=== PATIENT | female | born 1995 | race American Indian/Alaskan Native ===

== ENCOUNTER 2018-03-07 12:40 | Outpatient (CLI) | payer OTHER, BC, MEDICAID ==
[2018-03-07] MEDS ORDERED: LACTATED RINGERS 500 ML IV ONE (13:53)
== END 2018-03-07 14:29 | disposition home or self-care (01) ==
LOC: TRG 12:40
PROVIDERS: ATTEND Obstetrics & Gynecology
DX: O71.89 Other specified obstetric trauma (principal); Z3A.31 31 weeks gestation of pregnancy
CPT/HCPCS: 59025

== ENCOUNTER 2020-05-16 15:18 | Inpatient (IN) | payer BC, OTHER ==
[2020-05-16] MEDS ORDERED: TERBUTALINE 1 MG/1 ML INJ SUB-Q PRN (16:43)
[2020-05-16] MEDS ORDERED: PROMETHAZINE 25 MG TAB PO PRN (16:43)
[2020-05-16] MEDS ORDERED: LOPERAMIDE 2 MG CAP PO PRN (16:43)
[2020-05-16] MEDS ORDERED: METHYLERGONOVINE MALEATE 0.2 MG/ML VIAL IM PRN (16:43)
[2020-05-16] MEDS ORDERED: OXYTOCIN 10 UNIT/1 ML INJ IM PRN (16:43)
[2020-05-16] MEDS ORDERED: ONDANSETRON 4 MG/2 ML INJ IV PRN (16:43)
[2020-05-16] MEDS ORDERED: ePHEDrine SULFATE 50 MG/1 ML INJ IV PRN ×2 (16:43→19:38)
[2020-05-16] MEDS ORDERED: MINERAL OIL 30 ML ORAL LIQD PO PRN (16:43)
[2020-05-16] MEDS ORDERED: fentaNYL 100 MCG/2 ML INJ IV PRN (16:43)
[2020-05-16] MEDS ORDERED: CARBOPROST TROMETHAMINE 250 MCG/1 ML INJ IM PRN (16:43)
[2020-05-16] MEDS ORDERED: NALOXONE 0.4 MG/1 ML INJ IV PRN (16:43)
[2020-05-16] MEDS ORDERED: ACETAMINOPHEN 325 MG TAB PO PRN (16:43)
[2020-05-16] MEDS ORDERED: OXYTOCIN DRIP 30 UNITS/500 ML BAG IV SCH ×2 (16:49→16:50)
[2020-05-16] MEDS ORDERED: LIDOCAINE (2%) 20 MG/1 ML VIAL 20 ML MDV INFILTRATI ONE (16:49)
--- NOTE | 2020-05-16 17:45 | History and Physical Report ---
History of Present Illness Date of examination: 05/16/20 (Ctxs and SROM for thick mec in triage) Date of admission: 05/16/20 16:43 Chief complaint: I'm having ctxs. SROM for thick mec in triage. History of present illness: Pt presented to triage d/t ctxs and SROM for thick mec while during triage evaluation. 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 % Sun Exposure: rarely Dietary Counseling: pn yes Past Medical History: Reviewed history from 12/01/2017 and no changes required: Negative Past Medical History Past Surgical History: Reviewed history from 06/14/2019 and no changes required: negative Past Medical History Anesthesia Complications: negative Anemia: negative Autoimmune Disorder: negative Bleeding Disorder: negative Blood Transfusions: negative Breast Disease: negative Diabetes: negative Heart Disease: negative Hypertension: negative Hepatitis/Liver Disease: negative Kidney Disease/UTI: negative Neurologic/Epilepsy/Migraines: negative Phlebitis/Varicosities: negative Psychiatric: positive, depression Pulmonary Disease/Asthma: negative Thyroid Disease: negative Hospitalizations: negative Surgery (Non-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 Infection History Hx of STD: Tric HIV Risk Eval: no Hepatitis B Risk Eval: low risk Personal hx. of genital herpes: no Partner hx. of genital herpes: no Rash, Viral, or Febrile illness since last LMP? no Varicella/Chicken Pox Status: Unknown TB Risk: no Infection History Comments: Has never had chickenpox Genetic History Congenital Heart Defect: Mom: yes Dad: no Comments: Per pt, last baby had heart defect that needed to be repaired at 2 months of age Olya Disease: Mom: no Dad: no Thalassemia Mom: no Dad: no Neural Tube Defect Mom: no Dad: no Down's Syndrome Mom: no Dad: no Sabas-Sachs Mom: no Dad: no Sickle Cell Disease/Trait Dad: yes Hemophilia Mom: no Dad: no Muscular Dystrophy Mom: no Dad: no Cystic Fibrosis Mom: no Dad: no [place] Chorea Mom: no Dad: no Mental Retardation Mom: no Dad: no Fragile X Mom: no Dad: no Other Genetic/Chromosomal Disorder Mom: no Dad: no Child w/other defect Mom: no Dad: no Enviromental Exposures Xray Exposure: no Medication, drug, or alcohol use since LMP: no Chemical/Other Exposure: no Exposure to Cat Liter: no Hx of Parvovirus (Fifth Disease): no Occupational Exposure to Children: none Current Allergies (reviewed today): PENICILLIN G POT IN DEXTROSE (PENICILLIN G POTASSIUM IN D5W SOLN) (Critical) Laboratory Results Past History Past Medical History: no pertinent history Past Surgical History: no surgical history Family/Genetic History: none Social history: no significant social history - Obstetrical History Expected Date of Delivery: 05/18/20 Actual Gestation: 39 Week(s) 5 Day(s) : 3 Para: 1 Hx # Term Pregnancies: 1 Number of Pregnancies: 0 Spontaneous Abortions: 1 Induced : 0 Number of Living Children: 1 Medications and Allergies Allergies Allergy/AdvReac Type Severity Reaction Status Date / Time Penicillins Allergy Unknown Verified 05/11/18 19:40 Home Medications Medication Instructions Recorded Confirmed Last Taken Type Ondansetron [Zofran ODT TAB] 8 mg PO DAILY 05/16/20 05/16/20 05/15/20 20:00 History Active Meds: Active Medications Acetaminophen (Tylenol) 650 mg PO Q4H PRN PRN Reason: Pain, Mild (1-3) Carboprost Tromethamine (Hemabate) 250 mcg IM ONCE PRN PRN Reason: Uterine Bleeding Ephedrine Sulfate (Ephedrine Sulfate) 10 mg IV Q2M PRN PRN Reason: Hypotension Fentanyl (Sublimaze) 100 mcg IV Q2H PRN PRN Reason: Pain,Severe (7-10) LABOR PAIN Oxytocin/Sodium Chloride (Pitocin/Ns 30 Unit/500ml) 30 units in 500 mls @ 4 mls/hr IV TITR JENNIFER; Protocol Lactated Ringer's (Lactated Ringers) 1,000 mls @ 125 mls/hr IV DIRECT JENNIFER Oxytocin/Sodium Chloride (Pitocin/Ns 30 Unit/500ml) 30 units in 500 mls @ 40 mls/hr IV TITR JENNIFER; Protocol Loperamide HCl (Imodium) 2 mg PO ONCE PRN PRN Reason: give with Hemabate Methylergonovine Maleate (Methergine) 0.2 mg IM ONCE PRN PRN Reason: Uterine Bleeding Mineral Oil (Mineral Oil) 30 ml PO QHS PRN PRN Reason: Constipation Naloxone HCl (Naloxone) 0.1 mg IV Q2MIN PRN PRN Reason: Res Rate </= 8 or 02 SAT < 92% Ondansetron HCl (Zofran) 4 mg IV Q8H PRN PRN Reason: Nausea And Vomiting Oxytocin (Pitocin) 10 unit IM ONCE PRN PRN Reason: Uterine Bleeding Promethazine HCl (Phenergan) 25 mg PO Q6H PRN PRN Reason: Nausea And Vomiting Terbutaline Sulfate (Brethine) 0.25 mg SUB-Q ONCE PRN PRN Reason: Hyperstimulation/Hypertonicity Review of Systems All systems: negative - Vital Signs Vital signs: Vital Signs Temp Resp 98.8 F 20 05/16/20 16:17 05/16/20 16:17 Temp Pulse Resp BP Pulse Ox 98.2 F 104 H 17 116/74 99 05/16/20 16:55 05/16/20 17:36 05/16/20 16:55 05/16/20 16:55 05/16/20 17:36 - Physical Exam Breasts: Positive: deferred Cardiovascular: Regular rate Lungs: Positive: Normal air movement Abdomen: Positive: normal appearance, soft, normal bowel sounds. Negative: distention, tenderness Genitourinary (Female): Positive: normal external genitalia, normal perenium Vulva: both: normal Vagina: Positive: normal moisture. Negative: discharge Cervix: Negative: lesion, discharge Uterus: Positive: normal size, normal contour Adnexa: both: normal Anus/Rectum: Positive: normal perianal skin, heme negative. Negative: rectal mass, hemorrhoids Extremities: Positive: normal Deep Tendon Reflex Grade: Normal +2 - Obstetrical FHR: auscultation normal, category 1 Uterine Contraction Monitor Mode: External Cervical Dilatation: 4 (Per adobe architect) Cervical Effacement Percentage: 60 station: -2 Uterine Contraction Pattern: Regular Uterine Tone Measurement Phase: Resting Uterine Contraction Intensity: Moderate Results Result Diagrams: 05/16/20 18:27 All other labs normal. GBS NEGATIVE HBsAg Screen Negative Negative *1 RPR Non Reactive Non Reactive *2 Rubella Antibodies, IgG [L] <0.90 index Immune >0.99 *3 Non-immune <0.90 Equivocal 0.90 - 0.99 Immune >0.99 ABO Grouping A *4 Rh Factor Positive *5 Tests: (3) HIV Ag/Ab with Reflex (889294) HIV Screen 4th Generation wRfx Non Reactive Non Reactive *55 Tests: (4) HCV Ab w/Rflx to Verification ([id number]) ! HCV Ab <0.1 s/co ratio 0.0-0.9 *56 Tests: (5) Comment: ([id number]) ! Comment: SPRCS *57 Non reactive HCV antibody screen is consistent with no HCV infection, unless recent infection is suspected or other evidence exists to indicate HCV infection. Assessment and Plan A: 24 y.o., @ 39.5 wks, ctxs, SROM for thick meconium. Cervical exam / 2. Pt has history of shoulder dystocia in the last . Consult with Dr. Perkins regarding route of delivery, will come and evaluate pt. Pt states that she wants a vaginal delivery and does not want a at this time. Will admit to labor and delivery, IV fluid bolus for epidural placement. Anticipate at this time. - Patient Problems (1) History of shoulder dystocia in prior Onset Date: ~2017 Current Visit: Yes Status: Acute Plan to address problem: Will closely observe progress of labor. Step stool in room for delivery. (2) with 39 completed weeks gestation Onset Date: ~05/11/20 Current Visit: Yes Status: Acute Plan to address problem: Continue to observe progression of labor and monitor status through EFM. (3) Rupture of membranes with meconium present Onset Date: ~05/16/20 Current Visit: Yes Status: Acute Plan to address problem: [facility] team to be @ delivery for assessment of baby.
[2020-05-16] MEDS: LACTATED RINGERS 1,000 ML IV SCH ×2 (18:09→19:01)
[2020-05-16 18:49] LABS: Hemoglobin 8.4 gm/dl (10.1-14.3); Mean Corpuscular HGB Conc 31 % (30-34); Platelet Count 213 K/mm3 (140-440); Red Blood Count 3.88 M/mm3 (3.65-5.03); Red Cell Distribution Width 18.9 % (13.2-15.2)
[2020-05-16 18:53] LABS: Mean Corpuscular Volume 70 fl (79-97)
--- NOTE | 2020-05-16 19:06 | Event Note ---
Date: 05/16/20 Limitations of determining adequateness of the pelvis at this EGA discussed. Discussed possible 0.5lb-1lb weight gain per week. She was informed there may be a 1-2# weight discrepancy by US in the 3rd trimester. Risks with RELL discussed, including but not limited to, shoulder dystocia in which the may have transient or permanent paralysis of the the extremities, brain damage or as well as infection. Also discussed possible injury to the rectum or perineum that may require multiple surgeries and result in permanent diffic ulties with bowel movements and pain. Risks associated with delivery explained, including but not limited to, bleeding that may require a blood transfusion, infection, injury to her bowel and/or bladder or ureters that may be life threatening or fatal. Questions were encouraged and answered. She states this baby feels smaller than her first baby. She voiced understanding and desires to proceed with RELL.
[2020-05-16] MEDS ORDERED: NALOXONE 2 MG/2 ML INJ IV PRN (19:38)
--- NOTE | 2020-05-16 19:39 | Anesthesia Consultation ---
Anesthesia Consult and Med Hx Date of service: 05/16/20 - Airway Anesthetic Teeth Evaluation: Good ROM Head & Neck: Adequate Mental/Hyoid Distance: Adequate Mallampati Class: Class II Intubation Access Assessment: Probably Good - Pulmonary Exam CTA: Yes - Cardiac Exam Cardiac Exam: RRR - Pre-Operative Health Status ASA Pre-Surgery Classification: ASA2 Proposed Anesthetic Plan: Epidural - Pulmonary Hx Smoking: No Hx Asthma: No Hx Respiratory Symptoms: No COPD: No Hx Pneumonia: No - Cardiovascular System Hx Hypertension: No Hx Heart Attack/AMI: No - Central Nervous System Hx Neuromuscular Disorder: No Hx Seizures: No CVA: No Hx Back Pain: No Hx Psychiatric Problems: No - Endocrine Hx Renal Disease: No Hx End Stage Renal Disease: No Hx Liver Disease: No Hx Insulin Dependent Diabetes: No Hx Thyroid Disease: No Hx Hypothyroidism: No Hx Hyperthyroidism: No - Hematic Hx Anemia: Yes Hx Sickle Cell Disease: No - Other Systems Hx Alcohol Use: No Hx Obesity: Yes
--- NOTE | 2020-05-16 19:40 | Progress Note ---
Labor Epidural - Labor Epidural Start Time: 19:30 Stop Time: 19:35 Performed by:: DAMION LACY Procedure: Patient is requesting epidural for labor pain. H&P, and labs reviewed. Procedure explained, questions answered, consent obtained. Patient in sitting position with blood pressure cuff and pulse ox on and working. Timeout performed immediately before start of procedure. Sterile betadine prep/drape. 3 mL 1% lidocaine skin wheal at L[3]-L[4]. 18-gauge [employer] epidural needle advanced to [id number] with saline at [7] cm. Epidural dexmedetomidine [30] mcg administered. Epidural catheter advanced to [12] cm, negative aspiration for blood and csf, negative test dose 3 ml 1.5% lidocaine with epinephrine. Sterile steri-strips and tegaderm applied, followed by tape reinforcement. Patient tolerated procedure well.
[2020-05-16] MEDS ORDERED: fentaNYL-BUPIV 2 MCG/ML-0.125% 200 MCG/100 ML BAG EPIDURAL SCH (20:00)
--- NOTE | 2020-05-16 23:41 | Progress Note ---
Assessment and Plan A: 24 y.o. @ 39.5 wks, SROM mec stained fluid. Active labor. Cervical exam 9.5/100/0. P: Continue with expectant management. Anticipate . - Patient Problems (1) History of shoulder dystocia in prior Onset Date: ~2017 Current Visit: Yes Status: Acute (2) with 39 completed weeks gestation Onset Date: ~05/11/20 Current Visit: Yes Status: Acute (3) Rupture of membranes with meconium present Onset Date: ~05/16/20 Current Visit: Yes Status: Acute Subjective - Subjective Date of service: 05/16/20 (Pt comfortable with epidural. ) Principal diagnosis: IUP@ 39.5 wks, SROM mec stained. Active labor. Interval history: Pt presented to triage d/t ctxs and SROM for thick mec while during triage evaluation. 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 % Sun Exposure: rarely Dietary Counseling: pn yes Past Medical History: Reviewed history from 12/01/2017 and no changes required: Negative Past Medical History Past Surgical History: Reviewed history from 06/14/2019 and no changes required: negative Past Medical History Anesthesia Complications: negative Anemia: negative Autoimmune Disorder: negative Bleeding Disorder: negative Blood Transfusions: negative Breast Disease: negative Diabetes: negative Heart Disease: negative Hypertension: negative Hepatitis/Liver Disease: negative Kidney Disease/UTI: negative Neurologic/Epilepsy/Migraines: negative Phlebitis/Varicosities: negative Psychiatric: positive, depression Pulmonary Disease/Asthma: negative Thyroid Disease: negative Hospitalizations: negative 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 Infection History Hx of STD: Tric HIV Risk Eval: no Hepatitis B Risk Eval: low risk Personal hx. of genital herpes: no Partner hx. of genital herpes: no Rash, Viral, or Febrile illness since last LMP? no Varicella/Chicken Pox Status: Unknown TB Risk: no Infection History Comments: Has never had chickenpox Genetic History Congenital Heart Defect: Mom: yes Dad: no Comments: Per pt, last baby had heart defect that needed to be repaired at 2 months of age Olya Disease: Mom: no Dad: no Thalassemia Mom: no Dad: no Neural Tube Defect Mom: no Dad: no Down's Syndrome Mom: no Dad: no Sabas-Sachs Mom: no Dad: no Sickle Cell Disease/Trait Dad: yes Hemophilia Mom: no Dad: no Muscular Dystrophy Mom: no Dad: no Cystic Fibrosis Mom: no Dad: no [place] Chorea Mom: no Dad: no Mental Retardation Mom: no Dad: no Fragile X Mom: no Dad: no Other Genetic/Chromosomal Disorder Mom: no Dad: no Child w/other defect Mom: no Dad: no Enviromental Exposures Xray Exposure: no Medication, drug, or alcohol use since LMP: no Chemical/Other Exposure: no Exposure to Cat Liter: no Hx of Parvovirus (Fifth Disease): no Occupational Exposure to Children: none Current Allergies (reviewed today): PENICILLIN G POT IN DEXTROSE (PENICILLIN G POTASSIUM IN D5W SOLN) (Critical) Laboratory Results Objective - Vital Signs Vital Signs: Vital Signs - 12hr 05/16/20 05/16/20 05/16/20 16:17 16:51 16:55 Temperature 98.8 F 98.2 F Pulse Rate 93 H 92 H Respiratory 20 17 Rate Blood Pressure 116/74 Blood Pressure 116/74 [Right] O2 Sat by Pulse 98 97 Oximetry 05/16/20 05/16/20 05/16/20 16:56 17:01 17:06 Temperature Pulse Rate 98 H 93 H 96 H Respiratory Rate Blood Pressure Blood Pressure [Right] O2 Sat by Pulse 99 98 97 Oximetry 05/16/20 05/16/20 05/16/20 17:11 17:16 17:21 Temperature Pulse Rate 92 H 92 H 102 H Respiratory Rate Blood Pressure Blood Pressure [Right] O2 Sat by Pulse 98 98 99 Oximetry 05/16/20 05/16/20 05/16/20 17:26 17:31 17:36 Temperature Pulse Rate 98 H 93 H 104 H Respiratory Rate Blood Pressure Blood Pressure [Right] O2 Sat by Pulse 100 100 99 Oximetry 05/16/20 05/16/20 05/16/20 17:41 17:46 17:51 Temperature Pulse Rate 82 77 89 Respiratory Rate Blood Pressure Blood Pressure [Right] O2 Sat by Pulse 100 100 100 Oximetry 05/16/20 05/16/20 05/16/20 17:56 17:58 18:01 Temperature Pulse Rate 91 H 103 H 91 H Respiratory Rate Blood Pressure Blood Pressure [Right] O2 Sat by Pulse 100 91 100 Oximetry 05/16/20 05/16/20 05/16/20 18:06 18:11 18:16 Temperature Pulse Rate 101 H 85 82 Respiratory Rate Blood Pressure Blood Pressure [Right] O2 Sat by Pulse 100 100 100 Oximetry 05/16/20 05/16/20 05/16/20 18:21 18:26 18:29 Temperature Pulse Rate 84 81 96 H Respiratory Rate Blood Pressure Blood Pressure [Right] O2 Sat by Pulse 100 100 92 Oximetry 05/16/20 05/16/20 05/16/20 18:31 18:36 18:41 Temperature Pulse Rate 86 101 H 93 H Respiratory Rate Blood Pressure Blood Pressure [Right] O2 Sat by Pulse 100 100 100 Oximetry 05/16/20 05/16/20 05/16/20 18:46 18:51 18:56 Temperature Pulse Rate 93 H 106 H 106 H Respiratory Rate Blood Pressure Blood Pressure [Right] O2 Sat by Pulse 100 100 100 Oximetry 05/16/20 05/16/20 05/16/20 19:01 19:06 19:07 Temperature Pulse Rate 99 H 99 H 111 H Respiratory Rate Blood Pressure 109/69 Blood Pressure [Right] O2 Sat by Pulse 100 100 Oximetry 05/16/20 05/16/20 05/16/20 19:11 19:16 19:21 Temperature Pulse Rate 95 H 85 101 H Respiratory Rate Blood Pressure Blood Pressure [Right] O2 Sat by Pulse 100 100 100 Oximetry 05/16/20 05/16/20 05/16/20 19:26 19:30 19:31 Temperature Pulse Rate 109 H 117 H 112 H Respiratory Rate Blood Pressure 103/61 122/76 Blood Pressure [Right] O2 Sat by Pulse 94 100 Oximetry 05/16/20 05/16/20 05/16/20 19:32 19:34 19:36 Temperature Pulse Rate 117 H 104 H 106 H Respiratory Rate Blood Pressure 127/75 125/62 134/77 Blood Pressure [Right] O2 Sat by Pulse 99 Oximetry 05/16/20 05/16/20 05/16/20 19:38 19:40 19:41 Temperature Pulse Rate 97 H 101 H 101 H Respiratory Rate Blood Pressure 112/51 108/59 Blood Pressure [Right] O2 Sat by Pulse 85 100 Oximetry 05/16/20 05/16/20 05/16/20 19:42 19:43 19:46 Temperature Pulse Rate 100 H 96 H 93 H Respiratory Rate Blood Pressure 103/59 98/54 113/68 Blood Pressure [Right] O2 Sat by Pulse 100 Oximetry 05/16/20 05/16/20 05/16/20 19:48 19:49 19:51 Temperature Pulse Rate 93 H 91 H 91 H Respiratory Rate Blood Pressure 109/53 111/58 Blood Pressure [Right] O2 Sat by Pulse 100 Oximetry 05/16/20 05/16/20 05/16/20 19:52 19:53 19:56 Temperature Pulse Rate 90 90 93 H Respiratory Rate Blood Pressure 124/62 Blood Pressure [Right] O2 Sat by Pulse 88 100 Oximetry 05/16/20 05/16/20 05/16/20 20:01 20:06 20:07 Temperature Pulse Rate 90 87 92 H Respiratory Rate Blood Pressure 103/57 94/51 Blood Pressure [Right] O2 Sat by Pulse 100 100 Oximetry 05/16/20 05/16/20 05/16/20 20:10 20:11 20:15 Temperature Pulse Rate 90 97 H 72 Respiratory Rate Blood Pressure 93/55 Blood Pressure [Right] O2 Sat by Pulse 100 93 Oximetry 05/16/20 05/16/20 05/16/20 20:16 20:20 20:21 Temperature Pulse Rate 93 H 71 78 Respiratory Rate Blood Pressure 89/54 128/64 Blood Pressure [Right] O2 Sat by Pulse 100 100 Oximetry 05/16/20 05/16/20 05/16/20 20:25 20:26 20:31 Temperature Pulse Rate 81 79 88 Respiratory Rate Blood Pressure 116/56 108/66 Blood Pressure [Right] O2 Sat by Pulse 100 100 Oximetry 05/16/20 05/16/20 05/16/20 20:36 20:41 20:46 Temperature Pulse Rate 93 H 90 91 H Respiratory Rate Blood Pressure Blood Pressure [Right] O2 Sat by Pulse 100 100 100 Oximetry 05/16/20 05/16/20 05/16/20 20:49 20:51 20:56 Temperature Pulse Rate 96 H 101 H 97 H Respiratory Rate Blood Pressure 106/56 Blood Pressure [Right] O2 Sat by Pulse 100 100 Oximetry 05/16/20 05/16/20 05/16/20 21:01 21:04 21:06 Temperature Pulse Rate 87 95 H 92 H Respiratory Rate Blood Pressure 103/54 Blood Pressure [Right] O2 Sat by Pulse 100 100 Oximetry 05/16/20 05/16/20 05/16/20 21:11 21:16 21:19 Temperature Pulse Rate 109 H 98 H 96 H Respiratory Rate Blood Pressure 107/55 Blood Pressure [Right] O2 Sat by Pulse 100 100 Oximetry 05/16/20 05/16/20 05/16/20 21:21 21:26 21:31 Temperature Pulse Rate 91 H 102 H 90 Respiratory Rate Blood Pressure Blood Pressure [Right] O2 Sat by Pulse 100 100 99 Oximetry 05/16/20 05/16/20 05/16/20 21:34 21:36 21:41 Temperature Pulse Rate 133 H 88 95 H Respiratory Rate Blood Pressure 147/116 Blood Pressure [Right] O2 Sat by Pulse 94 96 99 Oximetry 05/16/20 05/16/20 05/16/20 21:46 21:50 21:51 Temperature Pulse Rate 103 H 100 H 103 H Respiratory Rate Blood Pressure 96/55 Blood Pressure [Right] O2 Sat by Pulse 97 97 Oximetry 05/16/20 05/16/20 05/16/20 21:56 22:01 22:04 Temperature Pulse Rate 86 104 H 102 H Respiratory Rate Blood Pressure 109/67 Blood Pressure [Right] O2 Sat by Pulse 98 100 0 L Oximetry 05/16/20 05/16/20 05/16/20 22:06 22:11 22:16 Temperature Pulse Rate 91 H 92 H 81 Respiratory Rate Blood Pressure Blood Pressure [Right] O2 Sat by Pulse 97 96 98 Oximetry 05/16/20 05/16/20 05/16/20 22:19 22:21 22:26 Temperature Pulse Rate 85 82 80 Respiratory Rate Blood Pressure 111/58 Blood Pressure [Right] O2 Sat by Pulse 97 98 Oximetry 05/16/20 05/16/20 05/16/20 22:31 22:34 22:36 Temperature Pulse Rate 87 93 H 92 H Respiratory Rate Blood Pressure 117/64 Blood Pressure [Right] O2 Sat by Pulse 100 99 Oximetry 05/16/20 05/16/20 05/16/20 22:41 22:46 22:50 Temperature Pulse Rate 77 78 78 Respiratory Rate Blood Pressure 114/56 Blood Pressure [Right] O2 Sat by Pulse 100 98 Oximetry 05/16/20 05/16/20 05/16/20 22:51 22:56 23:01 Temperature Pulse Rate 82 89 82 Respiratory Rate Blood Pressure Blood Pressure [Right] O2 Sat by Pulse 99 100 99 Oximetry 05/16/20 05/16/20 05/16/20 23:04 23:06 23:11 Temperature Pulse Rate 88 95 H 86 Respiratory Rate Blood Pressure 92/53 Blood Pressure [Right] O2 Sat by Pulse 100 99 Oximetry 05/16/20 05/16/20 05/16/20 23:16 23:19 23:21 Temperature Pulse Rate 88 94 H 86 Respiratory Rate Blood Pressure 91/50 Blood Pressure [Right] O2 Sat by Pulse 98 98 Oximetry 05/16/20 05/16/20 05/16/20 23:26 23:28 23:31 Temperature Pulse Rate 97 H 88 109 H Respiratory Rate Blood Pressure Blood Pressure [Right] O2 Sat by Pulse 100 94 99 Oximetry - Exam Breasts: deferred Cardiovascular: Regular rate Lungs: Normal air movement Abdomen: Present: normal appearance Vulva: both: normal Uterus: Present: normal FHR: category 1 Uterine Contraction Monitor Mode: External Cervical Dilatation: 9.5 Cervical Effacement Percentage: 100 station: 0 Uterine Contraction Frequency (min): 1-2 minutes Uterine Contraction Duration: 90secs Uterine Contraction Pattern: Regular Uterine Tone Measurement Phase: Resting Uterine Contraction Intensity: Moderate Extremities: normal Deep Tendon Reflex Grade: Normal +2 - Labs Labs: Abnormal Labs 05/16/20 18:27 Hgb 8.4 L Hct 27.0 L MCV 70 L MCH 22 L RDW 18.9 H Laboratory Results - last 24 hr 05/16/20 05/16/20 05/16/20 18:27 18:27 18:30 WBC 8.7 RBC 3.88 Hgb 8.4 L Hct 27.0 L MCV 70 L MCH 22 L MCHC 31 RDW 18.9 H Plt Count 213 Syphilis IgG Antibody Nonreactive Blood Type A POSITIVE Antibody Screen Negative
[2020-05-17] MEDS ORDERED: LIDOCAINE (2%) 20 MG/1 ML VIAL 20 ML MDV INFILTRATI ONE (00:03)
--- NOTE | 2020-05-17 01:50 | Procedure Note ---
OB Delivery Note - Delivery Date of Delivery: 05/17/20 Translator And Interpreter: MANDY MENENDEZ Estimated blood loss: other (150 ml) - Vaginal Delivery presentation: vertex Delivery position: OA Intrapartum events: meconium, mult.variable deceleratio Delivery induction: none Delivery monitor: external FHT, external uterine Route of delivery: Delivery placenta: spontaneous Delivery cord: 3 umbilical vessels Episiotomy: none Delivery laceration: none Anesthesia: none Delivery comments: Viable male over intact perineum. to mothers abdomen for skin to skin. Cord cut and clamped by FOC after cessation of pulse. Infant handed to IS[facility]AS RN for evaluation d/t meconium stained fluid. Spontaneous delivery of placenta, intact, 3 vessels noted. Extra Ashwin's jelly noted. Fundus firm, minimal bleeding noted. Perineum inspected, no lacerations noted. Apgars 8,9. Infant weight 7-11. EBL 150ml. Sponge and instrument count correct X2. and marline r left in stable condition in care of RN. - Infant A at 1 minute: 8 at 5 minutes: 9 Infant Gender: Male
[2020-05-17] MEDS ORDERED: diphenhydrAMINE 25 MG CAP PO PRN (01:51)
[2020-05-17] MEDS ORDERED: BENZOCAINE/MENTHOL 20/0.5% TOP SPRAY 56 GM TP PRN (01:51)
[2020-05-17] MEDS ORDERED: WITCH HAZEL/ GLYCERIN PAD TP PRN (01:51)
[2020-05-17] MEDS ORDERED: ONDANSETRON 4 MG/2 ML INJ IV PRN (01:51)
[2020-05-17] MEDS ORDERED: PROMETHAZINE 25 MG RECT SUPP PR PRN (01:51)
[2020-05-17] MEDS ORDERED: MAGNESIUM HYDROXIDE (MOM) ORAL LIQD UDC PO PRN (01:51)
[2020-05-17] MEDS ORDERED: PROMETHAZINE 25 MG TAB PO PRN (01:51)
[2020-05-17] MEDS ORDERED: LANOLIN/ZINC/DIMETHICONE (LANSINOH) 7 GM TP PRN (01:51)
[2020-05-17] MEDS ORDERED: ACETAMINOPHEN 500 MG TAB PO PRN (01:51)
[2020-05-17] MEDS ORDERED: OXYTOCIN DRIP 30 UNITS/500 ML BAG IV SCH (02:00)
[2020-05-17] MEDS: IBUPROFEN 800 MG TAB PO SCH ×4 (02:29→23:30)
--- NOTE | 2020-05-17 11:03 | Progress Note ---
Assessment and Plan A: 24 y.o. s/p . Doing well . H/H 8.4/27. Anemia before delivery. P: Continue care. Iron supplementation ordered, Rx on chart for when discharged home. Anticipate discharge home on 05/18/2020. - Patient Problems (1) History of shoulder dystocia in prior Onset Date: ~2017 Current Visit: Yes Status: Resolved (2) with 39 completed weeks gestation Onset Date: ~05/11/20 Current Visit: Yes Status: Resolved (3) Rupture of membranes with meconium present Onset Date: ~05/16/20 Current Visit: Yes Status: Resolved Subjective - Subjective Date of service: 05/17/20 (Pt doing well. Declines circumcision.) Principal diagnosis: s/p approximately 10 hours Interval history: Pt presented to triage d/t ctxs and SROM for thick mec while during triage evaluation. 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 % Sun Exposure: rarely Dietary Counseling: pn yes Past Medical History: Reviewed history from 12/01/2017 and no changes required: Negative Past Medical History Past Surgical History: Reviewed history from 06/14/2019 and no changes required: negative Past Medical History Anesthesia Complications: negative Anemia: negative Autoimmune Disorder: negative Bleeding Disorder: negative Blood Transfusions: negative Breast Disease: negative Diabetes: negative Heart Disease: negative Hypertension: negative Hepatitis/Liver Disease: negative Kidney Disease/UTI: negative Neurologic/Epilepsy/Migraines: negative Phlebitis/Varicosities: negative Psychiatric: positive, depression Pulmonary Disease/Asthma: negative Thyroid Disease: negative Hospitalizations: negative Surgery (Non-financial services rep): 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 Infection History Hx of STD: Tric HIV Risk Eval: no Hepatitis B Risk Eval: low risk Personal hx. of genital herpes: no Partner hx. of genital herpes: no Rash, Viral, or Febrile illness since last LMP? no Varicella/Chicken Pox Status: Unknown TB Risk: no Infection History Comments: Has never had chickenpox Genetic History Congenital Heart Defect: Mom: yes Dad: no Comments: Per pt, last baby had heart defect that needed to be repaired at 2 months of age Olya Disease: Mom: no Dad: no Thalassemia Mom: no Dad: no Neural Tube Defect Mom: no Dad: no Down's Syndrome Mom: no Dad: no Sabas-Sachs Mom: no Dad: no Sickle Cell Disease/Trait Dad: yes Hemophilia Mom: no Dad: no Muscular Dystrophy Mom: no Dad: no Cystic Fibrosis Mom: no Dad: no Hobbs Chorea Mom: no Dad: no Mental Retardation Mom: no Dad: no Fragile X Mom: no Dad: no Other Genetic/Chromosomal Disorder Mom: no Dad: no Child w/other defect Mom: no Dad: no Enviromental Exposures Xray Exposure: no Medication, drug, or alcohol use since LMP: no Chemical/Other Exposure: no Exposure to Cat Liter: no Hx of Parvovirus (Fifth Disease): no Occupational Exposure to Children: none Current Allergies (reviewed today): PENICILLIN G POT IN DEXTROSE (PENICILLIN G POTASSIUM IN D5W SOLN) (Critical) Laboratory Results Patient reports: appetite normal, voiding normally, pain well controlled, flatus, ambulating normally : doing well Objective - Vital Signs Latest vital signs: Vital Signs Temp Pulse Resp BP BP BP Pulse Ox 05/17/20 08:34 98.3 F 76 18 92/54 97 05/17/20 04:50 99.2 F 88 18 95/56 97 05/17/20 04:18 114 H 94 05/17/20 04:16 107 H 92 05/17/20 04:11 101 H 95 05/17/20 04:10 99 H 101/56 91 05/17/20 04:06 99 H 96 05/17/20 04:01 100 H 96 05/17/20 03:56 100 H 95 05/17/20 03:55 94 H 85/48 94 05/17/20 03:51 102 H 95 05/17/20 03:46 99 H 95 05/17/20 03:41 103 H 97 05/17/20 03:40 104 H 100/56 05/17/20 03:36 101 H 96 05/17/20 03:31 101 H 97 05/17/20 03:26 105 H 96 05/17/20 03:25 98 H 102/56 05/17/20 03:21 105 H 97 05/17/20 03:16 108 H 96 05/17/20 03:11 101 H 97 05/17/20 03:10 95 H 109/56 05/17/20 03:06 94 H 96 05/17/20 03:01 101 H 97 05/17/20 02:56 99 H 96 05/17/20 02:55 93 H 112/59 05/17/20 02:51 104 H 97 05/17/20 02:46 97 H 99 05/17/20 02:41 99 H 97 05/17/20 02:40 100 H 114/59 05/17/20 02:36 102 H 98 05/17/20 02:31 116 H 98 05/17/20 02:26 102 H 99 05/17/20 02:25 98 H 109/56 05/17/20 02:21 99 H 99 05/17/20 02:16 108 H 99 05/17/20 02:11 104 H 105/55 99 05/17/20 02:06 101 H 99 05/17/20 02:01 102 H 99 05/17/20 01:56 112 H 99 05/17/20 01:51 108 H 100 05/17/20 01:46 108 H 100 05/17/20 01:41 109 H 125/72 100 05/17/20 01:36 113 H 100 05/17/20 01:31 119 H 100 05/17/20 01:28 110 H 139/66 05/17/20 01:26 108 H 100 05/17/20 01:21 107 H 100 05/17/20 01:16 104 H 100 05/17/20 01:11 97 H 100 05/17/20 01:06 114 H 100 05/17/20 01:01 100 H 100 05/17/20 00:56 112 H 98 05/17/20 00:55 103 H 83 L 05/17/20 00:51 97 H 99 05/17/20 00:49 86 112/58 05/17/20 00:46 99 H 98 05/17/20 00:41 102 H 100 05/17/20 00:36 97 H 100 05/17/20 00:34 96 H 116/57 05/17/20 00:31 93 H 100 05/17/20 00:26 96 H 100 05/17/20 00:21 94 H 100 05/17/20 00:19 212 H 73 L 05/17/20 00:16 103 H 100 05/17/20 00:11 106 H 100 05/17/20 00:06 101 H 100 05/17/20 00:04 105 H 93 05/17/20 00:01 99 H 100 05/16/20 23:56 109 H 100 05/16/20 23:51 115 H 100 05/16/20 23:49 110 H 68 L 05/16/20 23:46 109 H 96 05/16/20 23:43 111 H 93 05/16/20 23:41 103 H 100 05/16/20 23:36 116 H 84 05/16/20 23:31 109 H 99 05/16/20 23:28 88 94 05/16/20 23:26 97 H 100 05/16/20 23:21 86 98 05/16/20 23:19 94 H 91/50 05/16/20 23:16 88 98 05/16/20 23:11 86 99 05/16/20 23:06 95 H 100 05/16/20 23:04 88 92/53 05/16/20 23:01 82 99 05/16/20 22:56 89 100 05/16/20 22:51 82 99 05/16/20 22:50 78 114/56 05/16/20 22:46 78 98 05/16/20 22:41 77 100 05/16/20 22:36 92 H 99 05/16/20 22:34 93 H 117/64 05/16/20 22:31 87 100 05/16/20 22:26 80 98 05/16/20 22:21 82 97 05/16/20 22:19 85 111/58 05/16/20 22:16 81 98 05/16/20 22:11 92 H 96 05/16/20 22:06 91 H 97 05/16/20 22:04 102 H 109/67 0 L 05/16/20 22:01 104 H 100 05/16/20 21:56 86 98 05/16/20 21:51 103 H 97 05/16/20 21:50 100 H 96/55 05/16/20 21:46 103 H 97 05/16/20 21:41 95 H 99 11/14/20 21:36 88 96 20 21:34 133 H 147/116 94 20 21:31 90 99 20 21:26 102 H 100 20 21:21 91 H 100 20 21:19 96 H 107/55 20 21:16 98 H 100 20 21:11 109 H 100 20 21:06 92 H 100 20 21:04 95 H 103/54 20 21:01 87 100 20 20:56 97 H 100 20 20:51 101 H 100 20 20:49 96 H 106/56 20 20:46 91 H 100 20 20:41 90 100 20 20:36 93 H 100 20 20:31 88 108/66 100 20 20:26 79 100 20 20:25 81 116/56 20 20:21 78 100 20 20:20 71 128/64 20 20:16 93 H 89/54 100 20 20:15 98.6 F 72 93 20 20:11 97 H 100 20 20:10 90 93/55 20 20:07 92 H 94/51 20 20:06 87 100 20 20:01 90 103/57 100 20 19:56 93 H 100 20 19:53 90 124/62 20 19:52 90 88 20 19:51 91 H 100 20 19:49 91 H 111/58 20 19:48 93 H 109/53 20 19:46 93 H 113/68 100 20 19:43 96 H 98/54 20 19:42 100 H 103/59 20 19:41 101 H 100 20 19:40 101 H 108/59 20 19:38 97 H 112/51 85 20 19:36 106 H 134/77 99 20 19:34 104 H 125/62 20 19:32 117 H 127/75 20 19:31 112 H 100 1420 19:30 117 H 122/76 20 19:26 109 H 103/61 94 14/20 19:21 101 H 100 20 19:16 85 100 20 19:11 95 H 100 20 19:07 111 H 109/69 20 19:06 99 H 100 20 19:01 99 H 100 20 18:56 106 H 100 20 18:51 106 H 100 20 18:46 93 H 100 20 18:41 93 H 100 20 18:36 101 H 100 20 18:31 86 100 20 18:29 96 H 92 05/16/20 18:26 81 100 20 18:21 84 100 20 18:16 82 100 05/16/20 18:11 85 100 20 18:06 101 H 100 20 18:01 91 H 100 20 17:58 103 H 91 20 17:56 91 H 100 20 17:51 89 100 20 17:46 77 100 20 17:41 82 100 20 17:36 104 H 99 20 17:31 93 H 100 20 17:26 98 H 100 20 17:21 102 H 99 20 17:16 92 H 98 20 17:11 92 H 98 20 17:06 96 H 97 20 17:01 93 H 98 20 16:56 98 H 99 20 16:55 98.2 F 92 H 17 116/74 116/74 97 20 16:51 93 H 98 20 16:17 98.8 F 20 Intake and Output 20 20 05/17/20 22:59 06:59 14:59 Intake Total 108.333 240 Output Total 1000 600 Balance 108.333 -1000 -360 Intake: IV 108.333 Lactated Ringers 1,000 ml 108.333 @ 125 mls/hr IV DIRECT JENNIFER Rx#:[id number] Oral 240 Output: Urine 1000 600 Void 1000 600 Other: Total, Intake Amount 240 Total, Output Amount 300 600 # Voids Void 1 2 Weight 192 lb Estimated Blood Loss 150 - Exam Narrative Exam: H/H on admission 8.4/27.0. Likely anemia before delivery. Post delivery H/H to be drawn later on this afternoon. Pt currently denies being dizzy, lightheadedness, shortness of breath or chest pain. Iron supplementation ordered. Rx for iron supplementation on chart. Also of note, pt declines circumcision. Breasts: Present: deferred Cardiovascular: Present: Regular rate Lungs: Present: Normal air movement Abdomen: Present: normal appearance, soft Vulva: both: normal Uterus: Present: normal, firm (Minimal bleeding noted. ) Extremities: Present: normal Deep Tendon Reflex Grade: Normal +2 - Labs Labs: Abnormal lab results 05/16/20 Range/Units 18:27 Hgb 8.4 L (10.1-14.3) gm/dl Hct 27.0 L (30.3-42.9) % MCV 70 L (79-97) fl MCH 22 L (28-32) pg RDW 18.9 H (13.2-15.2) %
[2020-05-17] MEDS: PRENATAL VIT27-FE FUMARATE-FOLIC ACID VIT TAB PO SCH (12:03)
[2020-05-17] MEDS: FERROUS SULFATE 325 MG TAB PO SCH (12:03)
[2020-05-17] MEDS: DOCUSATE SODIUM 100 MG CAP PO SCH ×2 (12:03→23:30)
--- NOTE | 2020-05-17 12:58 | Post Anesthesia Evaluation ---
- Post Anesthesia Evaluation Patient Participated: Yes Airway Patent: Yes Stable Respiratory Function: Yes Nausea/Vomiting: No Temp > 96.8F: Yes Pain Manageable: Yes Adequeate Hydration: Yes Anesthesia Complications: No Block Receding Appropriately: Yes
[2020-05-17 14:18] LABS: Hematocrit 24.5 % (30.3-42.9); Hemoglobin 7.5 gm/dl (10.1-14.3)
[2020-05-18] MEDS ORDERED: DIPHtheria,PERTUSSIS(ACELL),TETANUS VACCINE/PF 0.5 ML VIAL IM ONE (06:00)
[2020-05-18] MEDS: IBUPROFEN 800 MG TAB PO SCH ×2 (06:04→17:32)
--- NOTE | 2020-05-18 06:57 | Discharge Summary ---
Providers - Providers Date of Admission: 05/16/20 16:43 Date of discharge: 05/18/20 (pt agrees with d/c) Attending physician: GAYLE THOMPSON Primary care physician: GAYLE THOMPSON Hospitalization Reason for admission: active labor Delivery: Episiotomy: none Laceration: none Incision: normal Other procedures: none complications: none Discharge diagnosis: IUP at term delivered baby: male Hospital course: Uncomplicated vaginal delivery Pt resting in bed Caring for NB. VSS FF below umb Lochia small Perineum intact. H&H 01/23 No s/sx of anemia Drop r/t blood loss from delivery. RX po iron Doing well s/p vag delivery P: d.c today with instructions RTO 4 weeks PP care Condition at discharge: Good Disposition: DC-01 TO HOME OR SELFCARE - Discharge Diagnoses (1) (normal spontaneous vaginal delivery) Status: Acute Comment: RTO 4 weeks PP care Plan - Discharge Medications Prescriptions: Docusate Sodium [Colace] 100 mg PO BID PRN #60 capsule PRN Reason: Constipation Ferrous Sulfate [Iron 325 MG] 325 mg PO DAILY #30 tablet - Provider Discharge Summary Activity: routine, no sex for 6 weeks, no heavy lifting 4 weeks, no strenuous exercise Diet: routine Instructions: routine Additional instructions: [] Smoking cessation referral if applicable(refer to patient education folder for contact #) [] Refer to [facility] Booklet Call your doctor immediately for: * Fever > 100.5 * Heavy vaginal bleeding ( >1 pad per hour) * Severe persistent headache * Shortness of breath * Reddened, hot, painful area to leg or breast * Drainage or odor from incision. * Keep incision clean and dry at all times and follow doctor's instructions regarding bathing/showering - Follow up plan Follow up: GAYLE THOMPSON MD [Primary Care Provider] - 06/16/20 (Congratulations! Please call [phone] to schedule your visit in 4 weeks. Take medications as prescribed. Motrin/ibuprofen for pain/cramping. Call with any concerns.)
[2020-05-18] MEDS: FERROUS SULFATE 325 MG TAB PO SCH (09:41)
[2020-05-18] MEDS: DOCUSATE SODIUM 100 MG CAP PO SCH (09:42)
[2020-05-18] MEDS: PRENATAL VIT27-FE FUMARATE-FOLIC ACID VIT TAB PO SCH (09:43)
[2020-05-18 14:07] VITALS: BP 125/77
== END 2020-05-18 14:15 | disposition home or self-care (01) | DRG 807 ==
LOC: TRG 15:18 → APU 15:19 → TRG 16:43 → LD 16:43 → OB 05-17 04:53
PROVIDERS: ADMIT Obstetrics & Gynecology; ATTEND Obstetrics & Gynecology
PROC: 10E0XZZ Delivery of Products of Conception, External Approach (ICD-10-PCS; principal; 2020-05-17)
PROC: 3E0234Z Introduction of Serum, Toxoid and Vaccine into Muscle, Percutaneous Approach (ICD-10-PCS; 2020-05-18)
DX: O77.0 Labor and delivery complicated by meconium in amniotic fluid (principal); Z37.0 Single live birth; Z3A.39 39 weeks gestation of pregnancy; Z88.0 Allergy status to penicillin; Z20.828 Contact with and (suspected) exposure to other viral communicable diseases; O90.81 Anemia of the puerperium; O76 Abnormality in fetal heart rate and rhythm complicating labor and delivery; Z23 Encounter for immunization; D64.9 Anemia, unspecified
CPT/HCPCS: 36415; 85014; 85018; 85027; 86592; 86850; 86900; 86901; G0378; J2590; J3010; J7120; U0003

== ENCOUNTER 2020-05-24 18:36 | Observation (INO) | payer BC, OTHER ==
--- NOTE | 2020-05-24 18:52 | Event Note ---
ED Screening Note ED Screening Note: vaginal delivery on 05/17/2020 on 05/19/2020 began having CP and SOB states CP feels like tightness no pleuritic CP states she feels SOB when she lays flat and with exertion states she has to sleep with 3 pillows behind her no cough no fever no n/v/d no vaginal bleeding no COLIN currently no vision changes no leg swelling PMHx none no complications during allergy: pencillin no hx of HTN /P:2/A:1 BP: 166/95 This initial assessment/diagnostic orders/clinical plan/treatment(s) is/are subject to change based on patients health status, clinical progression and re- assessment by fellow clinical providers in the ED. Further treatment and workup at subsequent clinical providers discretion. Patient/guardian urged not to elope from the ED as their condition may be serious if not clinically assessed and managed. Initial orders include: CP protocol
[2020-05-24 19:18] LABS: Basophils # (Auto) 0.1 K/mm3 (0.0-0.1); Basophils % (Auto) 0.7 % (0.0-1.8); Eosinophils # (Auto) 0.1 K/mm3 (0.0-0.4); Eosinophils % (Auto) 1.7 % (0.0-4.3); Hematocrit 26.3 % (30.3-42.9); Hemoglobin 8.1 gm/dl (10.1-14.3); Lymphocytes # (Auto) 2.8 K/mm3 (1.2-5.4); Lymphocytes % (Auto) 34.6 % (13.4-35.0); Mean Corpuscular HGB Conc 31 % (30-34); Monocytes # (Auto) 0.6 K/mm3 (0.0-0.8); Monocytes % (Auto) 7.3 % (0.0-7.3); Platelet Count 228 K/mm3 (140-440); Red Blood Count 3.82 M/mm3 (3.65-5.03); Red Cell Distribution Width 19.2 % (13.2-15.2)
[2020-05-24 19:22] LABS: Mean Corpuscular Volume 69 fl (79-97)
[2020-05-24 19:28] LABS: INR 0.97 (0.87-1.13); Partial Thromboplastin Time 26.7 Sec. (24.2-36.6)
[2020-05-24 19:34] LABS: Alanine Aminotransferase 59 units/L (7-56); Albumin 3.1 g/dL (3.9-5); BUN/Creatinine Ratio 17; Blood Urea Nitrogen 12 mg/dL (7-17); Calcium 8.4 mg/dL (8.4-10.2); Hemolysis Index 3
[2020-05-24] MEDS ORDERED: hydrALAZINE 20 MG/1 ML INJ IV ONE (19:46)
[2020-05-24] MEDS ORDERED: IPRATROPIUM/ALBUTEROL SULFATE 3 ML AMPUL.NEB IH ONE (19:46)
--- NOTE | 2020-05-24 19:48 | XRay Report ---
CHEST 2 VIEWS INDICATION / CLINICAL INFORMATION: Chest Pain. COMPARISON: None available. FINDINGS: SUPPORT DEVICES: None. HEART / MEDIASTINUM: No significant abnormality. LUNGS / PLEURA: No significant pulmonary or pleural abnormality. No pneumothorax. ADDITIONAL FINDINGS: No significant additional findings. IMPRESSION: 1. No acute findings. Signer Name: Loco Soto MD Signed: 05/24/2020 7:43 PM Workstation Name: [id number]
--- NOTE | 2020-05-24 19:55 | Emergency Department Report ---
HPI - General Chief Complaint: Dyspnea/Respdistress Time Seen by Provider: 05/24/20 18:48 - HPI HPI: This is a 24-year-old female presents to the emergency department with a complaint of shortness of breath, chest discomfort, and swelling of her feet. The patient had a vaginal delivery here on 05/17/2020 and was discharged home the next day. The patient's symptoms started on Monday, about 5 days ago. The patient has some shortness of breath with exertion but says that it actually worsens when she is sitting down. The patient has increased shortness of breath when she is laying down and has to sit and lay with 3 pillows behind her. She denies any fever, nausea, vomiting, diaphoresis, back pain. She has not taken anything for symptoms prior to presentation. She denies any past medical history. She denies any tobacco or illicit drug use. ED Past Medical Hx - Past Medical History Previous Medical History?: Yes Hx Hypertension: No Hx Heart Attack/AMI: No Hx Congestive Heart Failure: No Hx Diabetes: No Hx Deep Vein Thrombosis: No Hx Liver Disease: No Hx Renal Disease: No Hx Sickle Cell Disease: No Hx Seizures: No Hx Asthma: No Hx COPD: No Hx HIV: No Additional medical history: Vaginal delivery - Social History Smoking Status: Never Smoker Substance Use Type: Alcohol - Medications Home Medications: Home Medications Medication Instructions Recorded Confirmed Last Taken Type Ondansetron [Zofran ODT TAB] 8 mg PO DAILY 05/16/20 05/16/20 05/15/20 20:00 History Docusate Sodium [Colace] 100 mg PO BID PRN #60 capsule 05/17/20 Unknown Rx Ferrous Sulfate [Iron 325 MG] 325 mg PO DAILY #30 tablet 05/17/20 Unknown Rx ED Review of Systems ROS: Stated complaint: SOB(1WK POST DELIVERY) Other details as noted in HPI Comment: All other systems reviewed and negative Constitutional: denies: chills, fever Eyes: denies: eye pain, vision change ENT: denies: ear pain, throat pain Respiratory: shortness of breath. denies: cough Cardiovascular: chest pain, edema (Bilateral feet) Gastrointestinal: denies: abdominal pain, vomiting Genitourinary: denies: dysuria, discharge Musculoskeletal: denies: back pain, arthralgia Skin: denies: rash, lesions Neurological: denies: headache, numbness Physical Exam - Physical Exam Vital Signs: Vital Signs 05/24/20 18:41 Temperature 98.8 F Pulse Rate 52 L Respiratory 20 Rate Blood Pressure 156/79 O2 Sat by Pulse 98 Oximetry Physical Exam: GENERAL: The patient is well-developed well-nourished. HENT: Normocephalic. Atraumatic. Patient has moist mucous membranes. EYES: Extraocular motions are intact. NECK: Supple. Trachea is midline. CHEST/LUNGS: Clear to auscultation. There is no respiratory distress noted. HEART/CARDIOVASCULAR: Regular. There is no tachycardia. There is no murmur. ABDOMEN: Abdomen is soft, nontender. Patient has normal bowel sounds. SKIN: Skin is warm and dry. No appreciable edema. NEURO: The patient is awake, alert, and oriented. The patient is cooperative. The patient has no focal neurologic deficits. Normal speech. MUSCULOSKELETAL: There is no tenderness or deformity. There is no limitation range of motion. ED Course Vital Signs 05/24/20 18:41 Temperature 98.8 F Pulse Rate 52 L Respiratory 20 Rate Blood Pressure 156/79 O2 Sat by Pulse 98 Oximetry - Reevaluation(s) Reevaluation #1: 05/25/20 00:10 Lab Results 05/24/20 05/24/20 05/24/20 Range/Units 18:55 18:55 18:55 WBC 8.0 (4.5-11.0) K/mm3 RBC 3.82 (3.65-5.03) M/mm3 Hgb 8.1 L (10.1-14.3) gm/dl Hct 26.3 L (30.3-42.9) % MCV 69 L (79-97) fl MCH 21 L (28-32) pg MCHC 31 (30-34) % RDW 19.2 H (13.2-15.2) % Plt Count 228 (140-440) K/mm3 Lymph % (Auto) 34.6 (13.4-35.0) % [place] % (Auto) 7.3 (0.0-7.3) % Eos % (Auto) 1.7 (0.0-4.3) % Baso % (Auto) 0.7 (0.0-1.8) % Lymph # (Auto) 2.8 (1.2-5.4) K/mm3 [place] # (Auto) 0.6 (0.0-0.8) K/mm3 Eos # (Auto) 0.1 (0.0-0.4) K/mm3 Baso # (Auto) 0.1 (0.0-0.1) K/mm3 Seg Neutrophils % 55.7 (40.0-70.0) % Seg Neutrophils # 4.4 (1.8-7.7) K/mm3 PT 12.8 (12.2-14.9) Sec. INR 0.97 (0.87-1.13) APTT 26.7 (24.2-36.6) Sec. D-Dimer (0-234) ng/mlDDU Sodium 142 (137-145) mmol/L Potassium 3.4 L (3.6-5.0) mmol/L Chloride 109.1 H (98-107) mmol/L Carbon Dioxide 22 (22-30) mmol/L Anion Gap 14 mmol/L BUN 12 (7-17) mg/dL Creatinine 0.7 (0.6-1.2) mg/dL Estimated GFR > 60 ml/min BUN/Creatinine Ratio 17 % Glucose 85 (65-100) mg/dL Calcium 8.4 (8.4-10.2) mg/dL Total Bilirubin 0.30 (0.1-1.2) mg/dL AST 60 H (5-40) units/L ALT 59 H (7-56) units/L Alkaline Phosphatase 179 H (35-129) units/L Troponin T < 0.010 (0.00-0.029) ng/mL NT-Pro-B Natriuret Pep 498.9 H (0-450) pg/mL Total Protein 6.5 (6.3-8.2) g/dL Albumin 3.1 L (3.9-5) g/dL Albumin/Globulin Ratio 0.9 % 05/24/ Range/Units 18:55 WBC (4.5-11.0) K/mm3 RBC (3.65-5.03) M/mm3 Hgb (10.1-14.3) gm/dl Hct (30.3-42.9) % MCV (79-97) fl MCH (28-32) pg MCHC (30-34) % RDW (13.2-15.2) % Plt Count (140-440) K/mm3 Lymph % (Auto) (13.4-35.0) % [place] % (Auto) (0.0-7.3) % Eos % (Auto) (0.0-4.3) % Baso % (Auto) (0.0-1.8) % Lymph # (Auto) (1.2-5.4) K/mm3 [place] # (Auto) (0.0-0.8) K/mm3 Eos # (Auto) (0.0-0.4) K/mm3 Baso # (Auto) (0.0-0.1) K/mm3 Seg Neutrophils % (40.0-70.0) % Seg Neutrophils # (1.8-7.7) K/mm3 PT (12.2-14.9) Sec. INR (0.87-1.13) APTT (24.2-36.6) Sec. D-Dimer > 21126 H (0-234) ng/mlDDU Sodium (137-145) mmol/L Potassium (3.6-5.0) mmol/L Chloride (98-107) mmol/L Carbon Dioxide (22-30) mmol/L Anion Gap mmol/L BUN (7-17) mg/dL Creatinine (0.6-1.2) mg/dL Estimated GFR ml/min BUN/Creatinine Ratio % Glucose (65-100) mg/dL Calcium (8.4-10.2) mg/dL Total Bilirubin (0.1-1.2) mg/dL AST (5-40) units/L ALT (7-56) units/L Alkaline Phosphatase (35-129) units/L Troponin T (0.00-0.029) ng/mL NT-Pro-B Natriuret Pep (0-450) pg/mL Total Protein (6.3-8.2) g/dL Albumin (3.9-5) g/dL Albumin/Globulin Ratio % ED Medical Decision Making - Lab Data Result diagrams: 05/24/20 18:55 05/24/20 18:55 - EKG Data -: EKG Interpreted by Or EKG shows normal: sinus rhythm, axis, intervals, QRS complexes, ST-T waves Rate: bradycardia (54 bpm) - EKG Data When compared to previous EKG there are: previous EKG unavailable Interpretation: normal EKG (With mild bradycardia) - Radiology Data Radiology results: report reviewed, image reviewed interpreted by me: Chest x-ray does not show any acute process. There are no pleural effusions, obvious pneumonia and there is no pneumothorax. No significant cardiomegaly. CTA CHEST WITH IV CONTRAST INDICATION: SOB, CP, Elevated dimer. TECHNIQUE: Axial CT images were obtained through the chest after injection of IV contrast. 3 plane MIP reconstructions were produced. All CT scans at this location are performed using CT dose reduction for ALARA by means of automated exposure control. COMPARISON: None available. FINDINGS: Pulmonary Arteries: No acute filling defects. There is mild artifact within left lower lobe medial inferior segmental pulmonary arteries. Thoracic Aorta: No acute abnormality. Heart: Normal. Lungs: Mild somewhat dependent bibasilar airspace disease is seen, grea ter on the right. Pleura: There is a very small right pleural effusion. Trace left pleural fluid is noted. No pneumothorax. Lymph Nodes: No significant adenopathy. Additional Findings: None. Upper Abdomen: No acute findings. Skeletal Structures: No significant osseous abnormality. IMPRESSION: 1. No acute PTE is seen. 2. Small right and trace left pleural effusions. Bibasilar airspace opacities are predominantly dependent and may be atelectatic. - Medical Decision Making This patient presents to the emergency department with a complaint of some shortness of breath, chest discomfort, feet swelling, and hypertension. The patient gave via vaginal delivery a little over 1 week ago. She did not have any hypertension or preeclampsia at that time. EKG does not have any morphology consistent with ST elevation myocardial infarction or any dysrhythmia . Chest x-ray does not show any pneumonia, pleural effusions, pneumothorax, or any other acute process. On examination the patient has normal sounding heart and lungs to auscultation. I do not see any appreciable edema to the bilateral lower extremities or feet. The patient does not appear in any respiratory or acute distress. The patient's labs show some anemia with a hemoglobin of 8.1, but this is increased from her last visit. Patient has slightly elevated LFTs and has a severely elevated D-dimer level. For this reason CT angiography of the chest was done but it did not show any signs of pulmonary embolism. There is a small right-sided pleural effusion and a trace left-sided pleural effusion. The radiology report also says that they cannot completely exclude pneumonia, but the patient is afebrile, does not have any leukocytosis, had a normal-appearing chest x-ray, does not have any cough, does not have any sounds of rhonchi, and pneumonia appears to be low suspicion. The patient was given a dose of oral hydralazine which did not improve the blood pressure, and in fact it went up. The patient has been given a dose of IV labetalol. I spoke with Dr. Neff who will admit the patient to her service for further evaluation and treatment. Critical Care Time: No Critical care attestation.: If time is entered above; I have spent that time in minutes in the direct care of this critically ill patient, excluding procedure time. ED Disposition Clinical Impression: Preeclampsia in period, hypertension Disposition: OP ADMIT IP TO THIS HOSP Is pt being admited?: Yes Condition: Serious Instructions: Hypertension (ED) Referrals: OBCHANA,MY [Other] - 3-5 Days Time of Disposition: 23:47
[2020-05-24] MEDS ORDERED: hydrALAZINE 25 MG TAB PO ONE (20:41)
--- NOTE | 2020-05-24 23:15 | Cat Scan Report ---
CTA CHEST WITH IV CONTRAST INDICATION: SOB, CP, Elevated dimer. TECHNIQUE: Axial CT images were obtained through the chest after injection of IV contrast. 3 plane MIP reconstru ctions were produced. All CT scans at this location are performed using CT dose reduction for ALARA b y means of automated exposure control. COMPARISON: None available. FINDINGS: Pulmonary Arteries: No acute filling defects. There is mild artifact within left lower lobe medial in ferior segmental pulmonary arteries. Thoracic Aorta: No acute abnormality. Heart: Normal. Lungs: Mild somewhat dependent bibasilar airspace disease is seen, greater on the right. Pleura: There is a very small right pleural effusion. Trace left pleural fluid is noted. No pneumotho rax. Lymph Nodes: No significant adenopathy. Additional Findings: None. Upper Abdomen: No acute findings. Skeletal Structures: No significant osseous abnormality. IMPRESSION: 1. No acute PTE is seen. 2. Small right and trace left pleural effusions. Bibasilar airspace opacities are predominantly depen dent and may be atelectatic. It would be difficult to exclude mild lower airways disease/pneumonia in the right lung base. Signer Name: Sarath Joel MD Signed: 05/24/2020 11:11 PM Workstation Name: [id number]
--- NOTE | 2020-05-25 01:04 | History and Physical Report ---
History of Present Illness Date of examination: 05/25/20 Date of admission: 05/24/20 23:47 Chief complaint: chest pain History of present illness: This is a 24-year-old female presents to the emergency department with a complaint of shortness of breath, chest discomfort, and swelling of her feet. The patient had a vaginal delivery here on 05/17/2020 and was discharged home the next day. The patient's symptoms started on Monday, about 5 days ago. The patient has some shortness of breath with exertion but says that it actually worsens when she is sitting down. The patient has increased shortness of breath when she is laying down and has to sit and lay with 3 pillows behind her. She denies any fever, nausea, vomiting, diaphoresis, back pain. She has not taken anything for symptoms prior to presentation. She denies any past medical history. She denies any tobacco or illicit drug use.Pt noted to have elevated blood pressures in the ED. She was evaluated and ruled out for pneumonia or PE. Pt admitted for post preE. Past Medical History: Reviewed history from 12/01/2017 and no changes required: Negative Past Medical History Past Surgical History: Reviewed history from 06/14/2019 and no changes required: negative Past Medical History Anesthesia Complications: negative Anemia: negative Autoimmune Disorder: negative Bleeding Disorder: negative Blood Transfusions: negative Breast Disease: negative Diabetes: negative Heart Disease: negative Hypertension: negative Hepatitis/Liver Disease: negative Kidney Disease/UTI: negative Neurologic/Epilepsy/Migraines: negative Phlebitis/Varicosities: negative Psychiatric: positive, depression Pulmonary Disease/Asthma: negative Thyroid Disease: negative Hospitalizations: negative Surgery (Non-jackhammer 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 Infection History Hx of STD: Tric HIV Risk Eval: no Hepatitis B Risk Eval: low risk Personal hx. of genital herpes: no Partner hx. of genital herpes: no Rash, Viral, or Febrile illness since last LMP? no Varicella/Chicken Pox Status: Unknown TB Risk: no Infection History Comments: Has never had chickenpox Genetic History Congenital Heart Defect: Mom: yes Dad: no Comments: Per pt, last baby had heart defect that needed to be repaired at 2 months of age Olya Disease: Mom: no Dad: no Thalassemia Mom: no Dad: no Neural Tube Defect Mom: no Dad: no Down's Syndrome Mom: no Dad: no Sabas-Sachs Mom: no Dad: no Sickle Cell Disease/Trait Dad: yes Hemophilia Mom: no Dad: no Muscular Dystrophy Mom: no Dad: no Cystic Fibrosis Mom: no Dad: no [place] Chorea Mom: no Dad: no Mental Retardation Mom: no Dad: no Fragile X Mom: no Dad: no Other Genetic/Chromosomal Disorder Mom: no Dad: no Child w/other defect Mom: no Dad: no Enviromental Exposures Xray Exposure: no Medication, drug, or alcohol use since LMP: no Chemical/Other Exposure: no Exposure to Cat Liter: no Hx of Parvovirus (Fifth Disease): no Occupational Exposure to Children: none Current Allergies (reviewed today): PENICILLIN G POT IN DEXTROSE (PENICILLIN G POTASSIUM IN D5W SOLN) (Critical) Past History Past Medical History: other (see hpi) 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 Family/Genetic History: other (see hpi) Social history: other (see hpi) - Obstetrical History : 3 Medications and Allergies Allergies Allergy/AdvReac Type Severity Reaction Status Date / Time Penicillins Allergy Unknown Verified 05/11/18 19:40 Home Medications Medication Instructions Recorded Confirmed Last Taken Type Ondansetron [Zofran ODT TAB] 8 mg PO DAILY 05/16/20 05/16/20 05/15/20 20:00 History Docusate Sodium [Colace] 100 mg PO BID PRN #60 capsule 05/17/20 Unknown Rx Ferrous Sulfate [Iron 325 MG] 325 mg PO DAILY #30 tablet 05/17/20 Unknown Rx Review of Systems All systems: negative - Vital Signs Vital signs: Vital Signs Temp Pulse Resp BP Pulse Ox 98.8 F 52 L 20 156/79 98 05/24/20 18:41 05/24/20 18:41 05/24/20 18:41 05/24/20 18:41 05/24/20 18:41 Temp Pulse Resp BP Pulse Ox 98.8 F 95 H 12 172/92 96 05/24/20 18:41 05/25/20 00:16 05/25/20 00:16 05/25/20 00:16 05/25/20 00:16 see ER exam Results Result Diagrams: 05/24/20 18:55 05/24/20 18:55 Abnormal lab results 05/24/20 05/24/20 05/24/20 Range/Units 18:55 18:55 18:55 Hgb 8.1 L (10.1-14.3) gm/dl Hct 26.3 L (30.3-42.9) % MCV 69 L (79-97) fl MCH 21 L (28-32) pg RDW 19.2 H (13.2-15.2) % D-Dimer > 16633 H (0-234) ng/mlDDU Potassium 3.4 L (3.6-5.0) mmol/L Chloride 109.1 H (98-107) mmol/L AST 60 H (5-40) units/L ALT 59 H (7-56) units/L Alkaline Phosphatase 179 H (35-129) units/L NT-Pro-B Natriuret Pep 498.9 H (0-450) pg/mL Albumin 3.1 L (3.9-5) g/dL All other labs normal. Assessment and Plan - Patient Problems (1) Preeclampsia in period Current Visit: Yes Status: Acute Plan to address problem: -admit -magnesium sulfate IV -start Labetalol 200mg po bid
[2020-05-25] MEDS ORDERED: ONDANSETRON 4 MG/2 ML INJ IV PRN (01:09)
[2020-05-25] MEDS ORDERED: ACETAMINOPHEN 325 MG TAB PO PRN ×2 (01:09→07:58)
[2020-05-25] MEDS ORDERED: MAGNESIUM SULFATE 4 GM/100 ML BAG IV ONE (01:14)
[2020-05-25] MEDS ORDERED: LACTATED RINGERS 1,000 ML ONE ×2 (01:28→16:40)
[2020-05-25] MEDS ORDERED: MAGNESIUM SULFATE 40GM/1000ML 40 GM/1,000 ML BAG IV SCH (02:00)
[2020-05-25] MEDS: IBUPROFEN 800 MG TAB PO PRN ×2 (02:21→23:01)
--- NOTE | 2020-05-25 03:44 | Event Note ---
Date: 05/25/20 Called by RN due to having right chest discomfort and also noted to have decrease in O2 sats with sleeping. Provider arrived to the room to find pt sleeping in room and O2 sat between 89-95%. When pt was awake and speaking with provider she was noted to have sats in the 95% or higher. Pt was also snoring. I inquired about h/o sleep apnea she denies. I d/w that she will have evaluation by Pulmonary team this admission and that she will also have an evaluation of her heart via ECHO as she stares she has now recalls left chest discomfort inst ead of right which has completely resolved at this time. Pt expressed understanding and questions were addressed and answered.
--- NOTE | 2020-05-25 08:08 | Progress Note ---
Assessment and Plan A: 24 y.o. s/p 9 days ago now with pre eclampsia. P: Continue with magnesium infusion. D/t be discontinued @ 0200 am on 05/26. Awaiting pulmonology evaluation, recommendations. Continue to monitor blood pressures. - Patient Problems (1) Preeclampsia in period Onset Date: ~05/24/20 Current Visit: Yes Status: Acute Plan to address problem: Will continue to observe blood pressures. Magnesium infusion to continue. Will discontinue on 05/26/2020 @ 0200 am. Subjective - Subjective Date of service: 05/25/20 (96% on 2L NC) Patient reports: pain well controlled Sandy: doing well (At home with family. ) Objective - Vital Signs Latest vital signs: Vital Signs Temp Pulse Pulse Resp Resp BP Pulse Ox 05/25/20 08:02 95 H 99 05/25/20 07:57 86 98 05/25/20 07:52 87 150/81 99 05/25/20 07:47 91 H 98 05/25/20 07:42 88 98 05/25/20 07:37 91 H 114/73 97 05/25/20 07:32 92 H 98 05/25/20 07:27 92 H 98 05/25/20 07:22 92 H 111/63 98 05/25/20 07:17 91 H 98 05/25/20 07:12 92 H 98 05/25/20 07:07 91 H 119/70 97 05/25/20 07:02 90 98 05/25/20 06:57 89 98 05/25/20 06:52 92 H 115/67 98 05/25/20 06:47 94 H 98 05/25/20 06:42 92 H 98 05/25/20 06:37 95 H 115/61 98 05/25/20 06:32 94 H 98 05/25/20 06:27 97 H 97 05/25/20 06:22 94 H 130/69 98 05/25/20 06:17 100 H 96 05/25/20 06:12 95 H 96 05/25/20 06:07 93 H 123/74 98 05/25/20 06:02 92 H 98 05/25/20 06:00 18 99 05/25/20 05:57 93 H 99 05/25/20 05:52 96 H 117/70 98 05/25/20 05:47 96 H 96 20 05:42 92 H 96 05/25/20 05:37 92 H 126/74 98 05/25/20 05:32 91 H 97 05/25/20 05:27 88 98 05/25/20 05:22 104 H 119/63 97 05/25/20 05:17 97 H 97 05/25/20 05:12 96 H 97 05/25/20 05:07 95 H 123/69 98 05/25/20 05:02 93 H 98 05/25/20 05:00 18 98 05/25/20 04:57 93 H 99 05/25/20 04:52 91 H 128/71 99 05/25/20 04:47 95 H 98 05/25/20 04:42 91 H 99 05/25/20 04:37 94 H 120/69 99 05/25/20 04:32 91 H 99 05/25/20 04:27 94 H 98 05/25/20 04:22 99 H 113/56 97 05/25/20 04:17 100 H 97 05/25/20 04:12 100 H 97 05/25/20 04:07 99 H 118/60 97 05/25/20 04:02 98 H 97 05/25/20 04:00 20 94 05/25/20 03:57 91 H 98 05/25/20 03:52 88 129/70 99 05/25/20 03:47 88 98 05/25/20 03:42 88 98 05/25/20 03:37 92 H 124/68 99 05/25/20 03:32 93 H 94 05/25/20 03:27 100 H 85 05/25/20 03:22 94 H 126/71 91 05/25/20 03:20 94 H 89 05/25/20 03:17 89 94 05/25/20 03:14 88 89 05/25/20 03:12 87 93 05/25/20 03:07 87 130/78 95 05/25/20 03:02 90 96 05/25/20 02:57 94 H 94 05/25/20 02:52 88 138/83 94 20 02:47 85 95 05/25/20 02:42 91 H 94 05/25/20 02:39 84 91 05/25/20 02:37 84 137/79 93 11/23/20 02:32 85 95 05/25/20 02:27 82 94 05/25/20 02:22 93 H 119/79 95 05/25/20 02:17 89 95 05/25/20 02:15 88 94 05/25/20 02:12 84 97 05/25/20 02:10 92 H 94 05/25/20 02:07 90 95 05/25/20 02:06 86 127/69 05/25/20 02:02 101 H 95 05/25/20 02:01 101 H 139/85 94 05/25/20 01:57 87 95 05/25/20 01:56 82 142/77 05/25/20 01:55 83 94 05/25/20 01:52 86 95 05/25/20 01:51 84 146/81 05/25/20 01:50 98.4 F 82 94 05/25/20 01:47 83 96 05/25/20 01:42 88 96 05/25/20 01:37 95 H 96 05/25/20 01:36 95 H 144/79 05/25/20 01:32 86 97 05/25/20 01:27 70 144/79 96 05/25/20 00:16 95 H 12 172/92 96 05/25/20 00:00 96 H 21 172/92 94 05/24/20 23:48 98 H 181/100 05/24/20 23:46 97 H 22 181/100 97 05/24/20 23:32 181/100 05/24/20 23:16 95 H 22 186/109 96 05/24/20 23:00 103 H 21 186/109 95 05/24/20 22:48 97 H 34 H 188/109 94 05/24/20 22:02 56 L 18 05/24/20 22:00 158/87 05/24/20 21:58 160/92 05/24/20 21:30 88 23 169/97 93 05/24/20 21:16 90 31 H 170/82 96 05/24/20 21:00 68 24 170/98 98 05/24/20 20:59 63 18 165/77 98 05/24/20 20:49 71 170/82 05/24/20 20:30 60 18 169/82 96 05/24/20 20:16 59 L 20 169/82 97 05/24/20 20:00 57 L 20 165/77 99 05/24/20 19:46 54 L 20 165/77 99 05/24/20 19:36 54 L 18 99 05/24/20 18:41 98.8 F 52 L 20 156/79 98 Intake and Output 05/24/20 05/25/20 05/25/20 22:59 06:59 14:59 Output Total 1150 Balance -1150 Output: Urine 1150 Indwelling Catheter 1150 Other: Total, Output Amount 650 Weight 190 lb - Exam Narrative Exam: Pt denies COLIN, blurred vision, spots eyes, blurred vision, chest pain, and upper abdominal pain. Pt states that she had some shortness of breath, but is now feeling a lot better. She is currently 96% on 2L NC. Explained the plan of care for her to be seen by the live in housekeeper today. And will develop a plan of care based off their assessment. Pt verbalized understanding. We also discussed magnesium infusion to continue until 0200 am on 05/26, and if stable after discontinuation, will transfer to unit. Breasts: Present: deferred Cardiovascular: Present: Regular rate, Normal S1, Normal S2 Lungs: Present: Clear to auscultation Abdomen: Present: normal appearance, soft, normal bowel sounds Vulva: both: normal Uterus: Present: normal (Scan bleeding noted. ) Extremities: Present: edema (Trace noted.) Deep Tendon Reflex Grade: Normal +2 - Labs Labs: Abnormal lab results 05/24/20 05/24/20 05/24/20 Range/Units 18:55 18:55 18:55 Hgb 8.1 L (10.1-14.3) gm/dl Hct 26.3 L (30.3-42.9) % MCV 69 L (79-97) fl MCH 21 L (28-32) pg RDW 19.2 H (13.2-15.2) % D-Dimer > 00104 H (0-234) ng/mlDDU Potassium 3.4 L (3.6-5.0) mmol/L Chloride 109.1 H (98-107) mmol/L Magnesium (1.7-2.3) mg/dL AST 60 H (5-40) units/L ALT 59 H (7-56) units/L Alkaline Phosphatase 179 H (35-129) units/L NT-Pro-B Natriuret Pep 498.9 H (0-450) pg/mL Albumin 3.1 L (3.9-5) g/dL 05/25/20 05/25/20 Range/Units 02:40 05:34 Hgb (10.1-14.3) gm/dl Hct (30.3-42.9) % MCV (79-97) fl MCH (28-32) pg RDW (13.2-15.2) % D-Dimer (0-234) ng/mlDDU Potassium (3.6-5.0) mmol/L Chloride (98-107) mmol/L Magnesium 4.00 H 4.70 H (1.7-2.3) mg/dL AST (5-40) units/L ALT (7-56) units/L Alkaline Phosphatase (35-129) units/L NT-Pro-B Natriuret Pep (0-450) pg/mL Albumin (3.9-5) g/dL
[2020-05-25] MEDS ORDERED: ACETAMINOPHEN 500 MG TAB PO PRN (10:00)
[2020-05-25] MEDS ORDERED: D5W/LACTATED RINGERS 1,000 ML IV SCH (12:00)
--- NOTE | 2020-05-25 14:02 | Event Note ---
Date: 05/25/20 (Seen by pulmonolgist) Spoke with Dr. Jhaveri pulmonolgist regarding pt diagnosis. Recommendations, cardiology consult and pt to have follow up as an outpatient, for official sleep apnea screening. Also before discharge home, walk pt with pulse Ox to make sure that her O2 sats are WNL.
--- NOTE | 2020-05-25 14:14 | Consultation ---
History of Present Illness Consult date: 05/25/20 Requesting physician: MANUEL MEJÍA Reason for consult: other History of present illness: 24 y/o female, 1 week post admitted with shortness of breath. Had CTA done on 05/24 which showed a right sided pleural effusion and normal lung parenchyma. Patient complains of orthopnea and positional shortness of breath. She also has complained of new onset lower ext edema. Mother at bedside, states that patient has snored her whole life. She has no prior history of lung disease. She required neb treatments briefly when she was a child after moving from [place] to [facility]. She apparently desatted last night while sleeping but the lowest they dropped to was 89 and had witnessed snoring. I was paged to [phone], however that number was functional this am at 0400, which was shortly after the episode. Patient is awake and alert. No complaints. Was started on nasal cannula. Past History Past Medical History: other (.) Social history: no significant social history Family history: hypertension Medications and Allergies Allergies Allergy/AdvReac Type Severity Reaction Status Date / Time Penicillins Allergy Unknown Verified 05/11/18 19:40 Home Medications Medication Instructions Recorded Confirmed Last Taken Type Ondansetron [Zofran ODT TAB] 8 mg PO DAILY 05/16/20 05/25/20 05/15/20 20:00 History Docusate Sodium [Colace] 100 mg PO BID PRN #60 capsule 05/17/20 05/25/20 Unknown Rx Ferrous Sulfate [Iron 325 MG] 325 mg PO DAILY #30 tablet 05/17/20 05/25/20 Unknown Rx Active Meds: Active Medications Acetaminophen (Tylenol) 1,000 mg PO Q6H PRN PRN Reason: Pain,MILD(1-3)/Fever>100.5/COLIN Magnesium Sulfate (Magnesium Sulfate 40gm/1000ml) 40 gm in 1,000 mls @ 50 m ls/hr IV DIRECT JENNIFER Last Admin: 05/25/20 02:06 Dose: 2 gm/hr, 50 mls/hr Documented by: Dextrose/Lactated Ringer's ([email or web address]) 1,000 mls @ 75 mls/hr IV DIRECT JENNIFER Ibuprofen (Ibuprofen) 800 mg PO Q6H PRN PRN Reason: Pain, Mild (1-3) Last Admin: 05/25/20 02:21 Dose: 800 mg Documented by: Labetalol HCl (Labetalol) 200 mg PO BID JENNIFER Last Admin: 05/25/20 09:29 Dose: 200 mg Documented by: Ondansetron HCl (Zofran) 4 mg IV Q8H PRN PRN Reason: Nausea And Vomiting Sodium Chloride (Sodium Chloride Flush Syringe 10 Ml) 10 ml IV BID [facility] Sodium Chloride (Sodium Chloride Flush Syringe 10 Ml) 10 ml IV PRN PRN PRN Reason: LINE FLUSH Review of Systems All systems: negative Physical Examination Vital signs: Vital Signs Pulse Ox 77 L 05/17/20 04:27 General appearance: no acute distress, alert Eyes: non-icteric ENT: oropharynx moist, other (mallampatti of 2) Neck: supple Effort: normal Ascultation: Bilateral: clear Percussion: Bilateral: not dull Tactile fremitus: Right: normal Cardiovascular: regular rate and rhythm Gastrointestinal: normoactive bowel sounds, soft Extremities: edema normal mental status, non-focal exam mood appropriate, affect normal Results - Laboratory Findings CBC and BMP: 05/24/20 18:55 05/24/20 18:55 PT/INR, D-dimer PT 12.8 Sec. (12.2-14.9) 05/24/20 18:55 INR 0.97 (0.87-1.13) 05/24/20 18:55 D-Dimer > 51540 ng/mlDDU (0-234) H 05/24/20 18:55 Abnormal lab findings: Abnormal Labs 05/24/20 05/24/20 05/24/20 18:55 18:55 18:55 Hgb 8.1 L Hct 26.3 L MCV 69 L MCH 21 L RDW 19.2 H D-Dimer > 32006 H Potassium 3.4 L Chloride 109.1 H Magnesium AST 60 H ALT 59 H Alkaline Phosphatase 179 H NT-Pro-B Natriuret Pep 498.9 H Albumin 3.1 L 05/25/20 05/25/20 02:40 05:34 Hgb Hct MCV MCH RDW D-Dimer Potassium Chloride Magnesium 4.00 H 4.70 H AST ALT Alkaline Phosphatase NT-Pro-B Natriuret Pep Albumin - Diagnostic Findings CT scan - chest: image reviewed Assessment and Plan 24 y/o female, status post 1 week, from delivery, admitted with shortness of breath, bilateral pleural effusions and pedal edema 1. Patient could have YULISA, but desaturations last night were not significantly low. Patient can follow up in the office and have official screening. If positive can arrange outpatient polysomnogram. Please wean FiO2 to off, but please assess ambulatory O2 sat prior to discharge. 2. OB attending mentioned obtaining echo, feel this is very reasonable given bilateral pleural effusions and pedal edema. 3. Will arrange follow up in our office 4. Left a message for process supervisor to correct her event note. YULISA diagnosis needs to be made with sleep study, can have clinical suspicion Thanks for the consult. Call if questions and please leave a number on the call back. [phone]
[2020-05-25] MEDS ORDERED: LACTATED RINGERS 1,000 ML IV SCH (17:00)
--- NOTE | 2020-05-25 18:21 | Consultation ---
History of Present Illness Consult date: 05/25/20 Consult reason: shortness of breath History of present illness: The patient is a 24-year-old woman who is 1 week after a normal vaginal delivery. She presents to the hospital with lower extremity swelling, shortness of breath and uncontrolled hypertension. She is admitted to the unit with a diagnosis of preeclampsia. During her , there was no hypertension, no lower extremity edema, and no cardiac complaints. There is no prior cardiac history. Her 2 previous pregnancies and deliveries were ro utine and uncomplicated. Last evening, while asleep, she was noted with transient hypoxemia, oxygen saturations of 89%. This prompted a pulmonary consultation, who recommended future evaluation with a sleep study and an echocardiogram. Cardiology consultation is requested for review of the echocardiogram that was performed today. The echocardiogram shows normal left ventricular systolic func tion with ejection fraction 55 to 60%, no significant valvular lesions, no pericardial effusion, essentially a normal echo. Other work-up done during this admission included chest x-ray that revealed normal-sized cardiac silhouette, clear lungs but a small right pleural effusion. A CT angiogram of the chest was negative for pulmonary embolism. EKG was a sinus bradycardia at 56, otherwise normal ECG. She has responded well to treatment with intravenous magnesium and labetalol, currently looks and feels better, and the edema is resolved and the blood pressure is better controlled at 136 systolic. Past History Past Medical History: No medical history Social history: no significant social history Family history: hypertension Medications and Allergies Allergies Allergy/AdvReac Type Severity Reaction Status Date / Time Penicillins Allergy Unknown Verified 05/11/18 19:40 Home Medications Medication Instructions Recorded Confirmed Last Taken Type Ondansetron [Zofran ODT TAB] 8 mg PO DAILY 05/16/20 05/25/20 05/15/20 20:00 History Docusate Sodium [Colace] 100 mg PO BID PRN #60 capsule 05/17/20 05/25/20 Unknown Rx Ferrous Sulfate [Iron 325 MG] 325 mg PO DAILY #30 tablet 05/17/20 05/25/20 Unkno wn Rx Active Meds: Active Medications Acetaminophen (Tylenol) 1,000 mg PO Q6H PRN PRN Reason: Pain,MILD(1-3)/Fever>100.5/COLIN Last Admin: 05/25/20 17:41 Dose: 1,000 mg Documented by: Magnesium Sulfate (Magnesium Sulfate 40gm/1000ml) 40 gm in 1,000 mls @ 50 mls/hr IV DIRECT JENNIFER Last Admin: 05/25/20 02:06 Dose: 2 gm/hr, 50 mls/hr Documented by: Lactated Ringer's (Lactated Ringers) 1,000 mls @ 75 mls/hr IV DIRECT JENNIFER Last Admin: 05/25/20 16:47 Dose: 75 mls/hr Documented by: Ibuprofen (Ibuprofen) 800 mg PO Q6H PRN PRN Reason: Pain, Mild (1-3) Last Admin: 05/25/20 02:21 Dose: 800 mg Documented by: Labetalol HCl (Labetalol) 200 mg PO BID [facility] Last Admin: 05/25/20 09:29 Dose: 200 mg Documented by: Ondansetron HCl (Zofran) 4 mg IV Q8H PRN PRN Reason: Nausea And Vomiting Sodium Chloride (Sodium Chloride Flush Syringe 10 Ml) 10 ml IV BID [facility] Sodium Chloride (Sodium Chloride Flush Syringe 10 Ml) 10 ml IV PRN PRN PRN Reason: LINE FLUSH Review of Systems Cardiovascular: edema, shortness of breath, no chest pain, no orthopnea, no palpitations, no rapid/irregular heart beat, no syncope, no lightheadedness Physical Examination Vital Signs Pulse Ox 77 L 05/17/20 04:27 General appearance: no acute distress HEENT: Positive: PERRL Neck: Positive: neck supple Cardiac: Positive: Reg Rate and Rhythm Lungs: Positive: clear to auscultation Neuro: Positive: Grossly Intact Abdomen: Positive: Soft Female genitourinary: deferred Skin: Positive: Clear Extremities: Absent: edema Results 05/24/20 18:55 05/24/20 18:55 Cardiac Enzymes 05/24/20 Range/Units 18:55 AST 60 H (5-40) units/L Coagulation 05/24/20 Range/Units 18:55 PT 12.8 (12.2-14.9) Sec. INR 0.97 (0.87-1.13) APTT 26.7 (24.2-36.6) Sec. CBC 05/24/20 Range/Units 18:55 WBC 8.0 (4.5-11.0) K/mm3 RBC 3.82 (3.65-5.03) M/mm3 Hgb 8.1 L (10.1-14.3) gm/dl Hct 26.3 L (30.3-42.9) % Plt Count 228 (140-440) K/mm3 Lymph # (Auto) 2.8 (1.2-5.4) K/mm3 [place] # (Auto) 0.6 (0.0-0.8) K/mm3 Eos # (Auto) 0.1 (0.0-0.4) K/mm3 Baso # (Auto) 0.1 (0.0-0.1) K/mm3 Comprehensive Metabolic Panel 05/24/20 Range/Units 18:55 Sodium 142 (137-145) mmol/L Potassium 3.4 L (3.6-5.0) mmol/L Chloride 109.1 H (98-107) mmol/L Carbon Dioxide 22 (22-30) mmol/L BUN 12 (7-17) mg/dL Creatinine 0.7 (0.6-1.2) mg/dL Glucose 85 (65-100) mg/dL Calcium 8.4 (8.4-10.2) mg/dL AST 60 H (5-40) units/L ALT 59 H (7-56) units/L Alkaline Phosphatase 179 H (35-129) units/L Total Protein 6.5 (6.3-8.2) g/dL Albumin 3.1 L (3.9-5) g/dL EKG interpretations - Telemetry EKG Rhythm: Sinus Bradycardia Assessment and Plan - Patient Problems (1) hypertension Current Visit: Yes Status: Acute Plan to address problem: Echocardiogram shows normal left ventricular systolic function, no significant valvular lesions, essentially normal echocardiogram. Continue blood pressure management with labetalol, and add low-dose diuretics as needed. The patient states that she is not breast-feeding and does not plan to do so, since the infant has been unwilling to engage in breast-feeding.
[2020-05-25] MEDS: hydroCHLOROthiazide 25 MG TAB PO SCH (21:46)
[2020-05-26] MEDS: IBUPROFEN 800 MG TAB PO PRN ×2 (05:53→14:55)
--- NOTE | 2020-05-26 06:24 | Progress Note ---
Assessment and Plan - Patient Problems (1) Preeclampsia in period Onset Date: ~05/24/20 Current Visit: Yes Status: Acute Plan to address problem: Pt has completed the 24hr of MGSO4 and is on Labetalol 200mg po BID. Transferred to M/B @ 0200. Resting @ time of rounds. BP 150-140/80 Pt continues to c/o tightness in her chest O2 sat 96% Pt denies COLIN blurred vision. Denies chest pain just the tightness. Will continue observation. Consults with Dr Perkins. Pulmonary and Cardiology consults on chart. Subjective - Subjective Date of service: 05/26/20 (denies any c/o) Principal diagnosis: PreE s/p 05/17/2020; MGSO4 X 24 completed; Labetalol 200mg BID Patient reports: appetite normal, voiding normally, ambulating normally [place]: other (pt states NB is well @ home) Objective - Vital Signs Latest vital signs: Vital Signs Temp Pulse Resp BP BP Pulse Ox 05/26/20 02:50 98.6 F 64 18 143/76 96 05/26/20 02:23 52 L 77 L 05/26/20 02:18 61 80 L 05/26/20 02:17 52 L 80 L 05/26/20 02:13 81 100 05/26/20 02:10 71 158/81 05/26/20 02:08 78 99 05/26/20 02:03 70 99 05/26/20 01:58 70 99 05/26/20 01:53 73 100 05/26/20 01:48 70 100 05/26/20 01:46 66 148/73 05/26/20 01:43 79 99 05/26/20 01:40 68 180/88 05/26/20 01:38 72 99 05/26/20 01:33 72 100 05/26/20 01:28 71 100 05/26/20 01:23 69 100 05/26/20 01:18 64 100 05/26/20 01:13 67 100 05/26/20 01:10 68 165/87 05/26/20 01:08 77 99 05/26/20 01:03 74 100 05/26/20 00:58 76 100 05/26/20 00:53 87 100 05/26/20 00:48 79 100 05/26/20 00:40 71 158/88 05/26/20 00:39 76 98 20 00:34 77 98 05/26/20 00:29 79 98 05/26/20 00:24 81 100 05/26/20 00:19 82 100 05/26/20 00:14 78 99 20 00:10 77 157/88 05/26/20 00:09 86 100 05/26/20 00:04 81 99 20 23:59 82 98 20 23:54 88 97 20 23:53 91 H 89 20 23:44 86 100 20 23:40 79 151/89 20 23:39 81 99 20 23:34 81 99 05/25/20 23:29 80 99 05/25/20 23:24 80 100 05/25/20 23:19 79 100 05/25/20 23:14 86 100 05/25/20 23:10 82 137/84 05/25/20 23:09 91 H 98 05/25/20 23:04 83 99 20 23:01 18 05/25/20 22:59 86 98 20 22:54 83 98 05/25/20 22:49 93 H 94 20 22:48 92 H 92 20 22:40 81 148/83 94 20 22:35 89 97 20 22:30 86 98 05/25/20 22:25 88 95 05/25/20 22:20 83 98 05/25/20 22:18 78 94 05/25/20 22:15 82 97 20 22:12 86 94 20 22:10 82 135/77 96 05/25/20 22:05 79 99 20 22:00 79 98 20 21:55 94 H 99 2320 21:50 100 H 98 23/20 21:46 98 H 128/75 23/20 21:45 91 H 97 23/20 21:40 91 H 128/75 95 23/20 21:35 92 H 98 23/20 21:30 93 H 98 23/20 21:25 90 98 23/20 21:20 89 98 23/20 21:15 85 98 05/25/20 21:10 94 H 144/96 97 23/20 21:05 84 98 23/20 21:00 81 99 23/20 20:55 78 99 23/20 20:50 76 99 23/20 20:45 90 100 23/20 20:40 80 143/87 98 23/20 20:35 83 100 23/20 20:30 85 99 23/20 20:25 83 100 23/20 20:20 77 99 05/25/20 20:15 82 98 05/25/20 20:10 73 143/91 98 23/20 20:05 91 H 96 05/25/20 20:00 100 H 97 05/25/20 19:57 98 H 136/85 05/25/20 19:55 95 H 98 05/25/20 19:50 90 97 05/25/20 19:49 67 81 L 05/25/20 19:40 80 163/92 05/25/20 19:39 83 98 05/25/20 19:34 77 100 05/25/20 19:29 77 100 05/25/20 19:24 80 99 05/25/20 19:19 84 100 05/25/20 19:14 82 100 05/25/20 19:09 91 H 99 05/25/20 19:04 84 99 05/25/20 18:59 93 H 94 20 18:58 90 142/86 94 05/25/20 17:47 88 98 05/25/20 17:42 80 99 05/25/20 17:37 77 100 05/25/20 17:33 84 136/96 05/25/20 17:32 80 99 05/25/20 17:27 86 99 05/25/20 17:22 73 95 05/25/20 17:19 73 94 05/25/20 17:17 72 95 05/25/20 17:14 73 94 05/25/20 17:12 74 96 05/25/20 17:07 75 96 05/25/20 17:02 77 98 05/25/20 16:57 82 96 20 16:52 80 98 05/25/20 16:47 84 98 23/20 16:42 84 98 23/20 16:37 83 98 23/20 16:33 89 135/87 23/20 16:32 84 97 05/25/20 15:54 96 H 145/93 23/20 15:51 90 97 23/20 15:46 90 140/83 97 23/20 14:06 96 H 122/76 05/25/20 14:03 97 H 99 05/25/20 13:58 102 H 98 05/25/20 13:53 96 H 121/77 99 05/25/20 13:48 98 H 99 05/25/20 13:43 97 H 98 05/25/20 13:38 98 H 99 05/25/20 13:33 95 H 99 05/25/20 13:28 94 H 98 05/25/20 13:23 91 H 99 05/25/20 13:18 101 H 99 05/25/20 13:13 102 H 98 05/25/20 13:08 99 H 114/72 98 05/25/20 13:03 97 H 99 05/25/20 12:58 101 H 99 05/25/20 12:53 96 H 99 05/25/20 12:48 97 H 99 05/25/20 12:43 96 H 98 05/25/20 12:38 98 H 98 05/25/20 12:33 98 H 99 05/25/20 12:28 99 H 98 05/25/20 12:23 100 H 119/77 99 05/25/20 12:18 98 H 98 05/25/20 12:13 101 H 98 05/25/20 12:08 96 H 98 05/25/20 12:03 96 H 99 05/25/20 11:58 98 H 98 05/25/20 11:53 92 H 99 05/25/20 11:48 96 H 98 05/25/20 11:43 94 H 99 05/25/20 11:38 90 134/79 99 05/25/20 11:33 94 H 99 05/25/20 11:28 92 H 99 05/25/20 11:23 92 H 98 05/25/20 11:18 92 H 99 05/25/20 11:13 95 H 98 05/25/20 11:08 93 H 99 05/25/20 11:03 99 H 98 23/20 10:58 93 H 99 05/25/20 10:53 90 132/76 99 23/20 10:48 92 H 100 05/25/20 10:43 101 H 99 23/20 10:38 91 H 100 05/25/20 10:33 93 H 99 23/20 10:28 93 H 99 05/25/20 10:23 91 H 100 05/25/20 10:18 92 H 99 05/25/20 10:13 89 99 23/20 10:08 89 131/80 99 05/25/20 10:03 87 99 23/20 09:58 93 H 99 05/25/20 09:52 91 H 99 05/25/20 09:47 88 100 05/25/20 09:42 94 H 99 05/25/20 09:37 91 H 99 05/25/20 09:32 94 H 99 05/25/20 09:27 91 H 99 20 09:22 90 134/83 99 05/25/20 09:17 90 99 05/25/20 09:15 98.4 F 94 H 18 134/83 99 05/25/20 09:12 93 H 98 05/25/20 09:07 94 H 135/82 99 05/25/20 09:02 96 H 99 05/25/20 08:57 98 H 98 05/25/20 08:52 110 H 131/74 98 05/25/20 08:47 99 H 97 05/25/20 08:42 90 97 20 08:37 88 141/79 99 05/25/20 08:32 94 H 97 05/25/20 08:27 89 98 23/20 08:22 88 127/79 99 23/20 08:17 89 98 23/20 08:12 86 99 05/25/20 08:07 92 H 126/76 98 23/20 08:02 95 H 99 05/25/20 07:57 86 98 05/25/20 07:52 87 150/81 99 23/20 07:47 91 H 98 05/25/20 07:42 88 98 05/25/20 07:37 91 H 114/73 97 05/25/20 07:32 92 H 98 05/25/20 07:27 92 H 98 05/25/20 07:22 92 H 111/63 98 05/25/20 07:17 91 H 98 05/25/20 07:12 92 H 98 05/25/20 07:07 91 H 119/70 97 05/25/20 07:02 90 98 05/25/20 06:57 89 98 05/25/20 06:52 92 H 115/67 98 05/25/20 06:47 94 H 98 05/25/20 06:42 92 H 98 05/25/20 06:37 95 H 115/61 98 05/25/20 06:32 94 H 98 05/25/20 06:27 97 H 97 Intake and Output 05/25/20 05/25/20 05/26/20 14:59 22:59 06:59 Output Total 1800 1000 1100 Balance -1800 -1000 -1100 Output: Urine 7256 924 5372 Indwelling Catheter 1800 600 800 Void 300 Other 400 Other: Total, Output Amount 500 400 300 # Voids Void 1 - Exam Breasts: Present: normal Cardiovascular: Present: Regular rate Lungs: Present: Clear to auscultation Abdomen: Present: normal appearance, soft Uterus: Present: normal Extremities: Present: normal, edema (+1 LE bilateral) Deep Tendon Reflex Grade: Normal +2 Incision: Present: normal - Labs Labs: Abnormal lab results 05/25/20 05/25/20 05/25/20 Range/Units 05:34 13:58 17:42 Magnesium 4.70 H 6.00 H 5.00 H (1.7-2.3) mg/dL 05/26/20 Range/Units 00:17 Magnesium 5.40 H (1.7-2.3) mg/dL
--- NOTE | 2020-05-26 10:10 | Progress Note ---
Assessment and Plan 24 y/o female, status post 1 week, from delivery, admitted with shortness of breath, bilateral pleural effusions and pedal edema 1. Pulm bran stable for discharge. Will arrange office visit for outpatient follow up to screen for YULISA. 2. Needs better BP control 3. Agree with volume removal, hopefully HCTZ will be enough. Subjective Date of service: 05/26/20 Principal diagnosis: PreE s/p 05/17/2020; MGSO4 X 24 completed; Labetalol 200mg BID Interval history: Back on Room air. Vitals stable. Still transient drops in sats but only at night. Patient states she feels better. Cards started patient on HCTZ Objective Vital Signs - 12hr 05/25/20 05/25/20 05/25/20 22:10 22:12 22:15 Temperature Pulse Rate 82 86 82 Respiratory Rate Blood Pressure 135/77 Blood Pressure [Right] O2 Sat by Pulse 96 94 97 Oximetry 05/25/20 05/25/20 05/25/20 22:18 22:20 22:25 Temperature Pulse Rate 78 83 88 Respiratory Rate Blood Pressure Blood Pressure [Right] O2 Sat by Pulse 94 98 95 Oximetry 05/25/20 05/25/20 05/25/20 22:30 22:35 22:40 Temperature Pulse Rate 86 89 81 Respiratory Rate Blood Pressure 148/83 Blood Pressure [Right] O2 Sat by Pulse 98 97 94 Oximetry 05/25/20 05/25/20 05/25/20 22:48 22:49 22:54 Temperature Pulse Rate 92 H 93 H 83 Respiratory Rate Blood Pressure Blood Pressure [Right] O2 Sat by Pulse 92 94 98 Oximetry 05/25/20 05/25/20 05/25/20 22:59 23:01 23:04 Temperature Pulse Rate 86 83 Respiratory 18 Rate Blood Pressure Blood Pressure [Right] O2 Sat by Pulse 98 99 Oximetry 05/25/20 05/25/20 05/25/20 23:09 23:10 23:14 Temperature Pulse Rate 91 H 82 86 Respiratory Rate Blood Pressure 137/84 Blood Pressure [Right] O2 Sat by Pulse 98 100 Oximetry 05/25/20 05/25/20 05/25/20 23:19 23:24 23:29 Temperature Pulse Rate 79 80 80 Respiratory Rate Blood Pressure Blood Pressure [Right] O2 Sat by Pulse 100 100 99 Oximetry 05/25/20 05/25/20 05/25/20 23:34 23:39 23:40 Temperature Pulse Rate 81 81 79 Respiratory Rate Blood Pressure 151/89 Blood Pressure [Right] O2 Sat by Pulse 99 99 Oximetry 05/25/20 05/25/20 05/25/20 23:44 23:53 23:54 Temperature Pulse Rate 86 91 H 88 Respiratory Rate Blood Pressure Blood Pressure [Right] O2 Sat by Pulse 100 89 97 Oximetry 05/25/20 05/26/20 05/26/20 23:59 00:01 00:04 Temperature Pulse Rate 82 81 Respiratory 18 Rate Blood Pressure Blood Pressure [Right] O2 Sat by Pulse 98 99 Oximetry 05/26/20 05/26/20 05/26/20 00:09 00:10 00:14 Temperature Pulse Rate 86 77 78 Respiratory Rate Blood Pressure 157/88 Blood Pressure [Right] O2 Sat by Pulse 100 99 Oximetry 05/26/20 05/26/20 05/26/20 00:19 00:24 00:29 Temperature Pulse Rate 82 81 79 Respiratory Rate Blood Pressure Blood Pressure [Right] O2 Sat by Pulse 100 100 98 Oximetry 05/26/20 05/26/20 05/26/20 00:34 00:39 00:40 Temperature Pulse Rate 77 76 71 Respiratory Rate Blood Pressure 158/88 Blood Pressure [Right] O2 Sat by Pulse 98 98 Oximetry 05/26/20 05/26/20 05/26/20 00:48 00:53 00:58 Temperature Pulse Rate 79 87 76 Respiratory Rate Blood Pressure Blood Pressure [Right] O2 Sat by Pulse 100 100 100 Oximetry 05/26/20 05/26/20 05/26/20 01:03 01:08 01:10 Temperature Pulse Rate 74 77 68 Respiratory Rate Blood Pressure 165/87 Blood Pressure [Right] O2 Sat by Pulse 100 99 Oximetry 05/26/20 05/26/20 05/26/20 01:13 01:18 01:23 Temperature Pulse Rate 67 64 69 Respiratory Rate Blood Pressure Blood Pressure [Right] O2 Sat by Pulse 100 100 100 Oximetry 05/26/20 05/26/20 05/26/20 01:28 01:33 01:38 Temperature Pulse Rate 71 72 72 Respiratory Rate Blood Pressure Blood Pressure [Right] O2 Sat by Pulse 100 100 99 Oximetry 05/26/20 05/26/20 05/26/20 01:40 01:43 01:46 Temperature Pulse Rate 68 79 66 Respiratory Rate Blood Pressure 180/88 148/73 Blood Pressure [Right] O2 Sat by Pulse 99 Oximetry 05/26/20 05/26/20 05/26/20 01:48 01:53 01:58 Temperature Pulse Rate 70 73 70 Respiratory Rate Blood Pressure Blood Pressure [Right] O2 Sat by Pulse 100 100 99 Oximetry 05/26/20 05/26/20 05/26/20 02:03 02:08 02:10 Temperature Pulse Rate 70 78 71 Respiratory Rate Blood Pressure 158/81 Blood Pressure [Right] O2 Sat by Pulse 99 99 Oximetry 05/26/20 05/26/20 05/26/20 02:13 02:17 02:18 Temperature Pulse Rate 81 52 L 61 Respiratory Rate Blood Pressure Blood Pressure [Right] O2 Sat by Pulse 100 80 L 80 L Oximetry 05/26/20 05/26/20 05/26/20 02:23 02:50 08:45 Temperature 98.6 F 97.9 F Pulse Rate 52 L 64 80 Respiratory 18 18 Rate Blood Pressure Blood Pressure 143/76 137/71 [Right] O2 Sat by Pulse 77 L 96 Oximetry Constitutional: no acute distress, alert Eyes: non-icteric ENT: oropharynx moist, other (mallampatti of 2) Neck: supple Effort: normal Ascultation: Bilateral: clear Percussion: Bilateral: not dull Tactile fremitus: Right: normal Cardiovascular: regular rate and rhythm Gastrointestinal: normoactive bowel sounds, soft Extremities: edema Neurologic: normal mental status, non-focal exam Psychiatric: mood appropriate, affect normal CBC and BMP: 05/24/20 18:55 05/24/20 18:55 ABG, PT/INR, D-dimer: PT/INR, D-dimer PT 12.8 Sec. (12.2-14.9) 05/24/20 18:55 INR 0.97 (0.87-1.13) 05/24/20 18:55 D-Dimer > 29803 ng/mlDDU (0-234) H 05/24/20 18:55 Abnormal lab findings: Abnormal Labs 05/24/20 05/24/20 05/24/20 18:55 18:55 18:55 Hgb 8.1 L Hct 26.3 L MCV 69 L MCH 21 L RDW 19.2 H D-Dimer > 03181 H Potassium 3.4 L Chloride 109.1 H Magnesium AST 60 H ALT 59 H Alkaline Phosphatase 179 H NT-Pro-B Natriuret Pep 498.9 H Albumin 3.1 L 05/25/20 05/25/20 05/25/20 02:40 05:34 13:58 Hgb Hct MCV MCH RDW D-Dimer Potassium Chloride Magnesium 4.00 H 4.70 H 6.00 H AST ALT Alkaline Phosphatase NT-Pro-B Natriuret Pep Albumin 05/25/20 05/26/20 17:42 00:17 Hgb Hct MCV MCH RDW D-Dimer Potassium Chloride Magnesium 5.00 H 5.40 H AST ALT Alkaline Phosphatase NT-Pro-B Natriuret Pep Albumin
[2020-05-26] MEDS: hydroCHLOROthiazide 25 MG TAB PO SCH (10:29)
--- NOTE | 2020-05-26 13:08 | Discharge Summary ---
Providers - Providers Date of Admission: 05/24/20 23:47 Date of discharge: 05/26/20 (pt anxious to be d/c Instructions given via phone Pt was seen in person this AM) Attending physician: MANUEL MEJÍA 05/25/20 03:36 Consult to Physician [CONS] Routine Comment: Consulting Provider: LIO SALVADOR Physician Instructions: please evalute Reason For Exam: hypoxia with sleeping; abnormal chest xray 05/25/20 14:19 Consult to Cardiology [CONS] Routine Consulting Provider: TK DALEY Reason For Exam: Chest pain and pressure Hospitalization Reason for admission: Chest tightness; PP PreE Condition: Good Disposition: DC-01 TO HOME OR SELFCARE - Discharge Diagnoses (1) Preeclampsia in period Status: Acute Comment: f/u 06-02-20 @ 0945 Core Measure Documentation - Palliative Care Palliative Care/ Comfort Measures: Not Applicable - Core Measures Any of the following diagnoses?: none - VTE Discharge Requirements Deep Vein Thrombosis/Pulmonary Embolism Present on Admission: No Has pt received <5 days of overlap therapy or INR<2.0: No Anticoagulant overlap therapy prescribed at discharge: No Contraindication No Overlap Therapy order at DC: Not Indicated - Acute MT Discharge Requirements Aspirin at discharge: No Reason for no aspirin on DC: Medical contraindication ALTON/ARB for LVSD if EF <40%: Not Applicable Reason for no ALTON/ARB: Medical contraindication Beta brian at discharge: No Reason for no beta brian on DC: Medical contraindication Statin for LDL = or >100 mg/dl on DC: Not Applicable Reason for no statin on DC: Medical contraindication - Heart Failure Discharge Requirements ALTON/ARB for LVSD if EF <40%: Not Applicable Reason for no ALTON/ARB: Medical contraindication Beta brian at discharge: No Reason for no beta brian on DC: Medical contraindication - Stroke Discharge Requirements Statin for LDL = or >70 mg/dl on DC: Not Applicable Reason for no statin on DC: Not Indicated Anticoag for atrial fib/atrial flutter: Not Applicable Reason for no anticoag for AF/F on DC: Not Indicated Antithrombotic for ischemic stroke: No Reason for no antithrombotic on DC: Not Indicated Exam - Constitutional Vitals: Temp Pulse Resp BP Pulse Ox 97.9 F 67 18 153/80 96 05/26/20 08:45 05/26/20 10:24 05/26/20 08:45 05/26/20 10:24 05/26/20 10:51 General appearance: Present: no acute distress, well-nourished - EENT Eyes: Present: PERRL ENT: hearing intact, clear oral mucosa - Neck Neck: Present: supple, normal ROM - Respiratory Respiratory effort: normal Respiratory: bilateral: CTA - Extremities Extremities: pulses symmetrical, No edema Peripheral Pulses: within normal limits - Abdominal General gastrointestinal: Present: soft, non-tender, non-distended, normal bowel sounds Female genitourinary: Present: deferred, normal - Rectal Rectal Exam: deferred - Integumentary Integumentary: Present: clear, warm, dry - Musculoskeletal Musculoskeletal: gait normal, strength equal bilaterally - Psychiatric Psychiatric: appropriate mood/affect, intact judgment & insight - Neurologic Neurologic: CNII-XII intact, moves all extremities Plan Activity: advance as tolerated Weight Bearing Status: Weight Bear as Tolerated Diet: low salt Plan of Treatment: continue Labetalol 200mg po BID and HCTZ 25mg QD at home RX sent Assessment: Pt w/o any c/o chest tightness, COLIN, blurred vision at time of d/c Follow up with: LIAM BURKETT [Other] - 3-5 Days GAYLE THOMPSON MD [Staff Physician] - 06/02/20 9:45 am (Please contact Pulmonary as instructed and schedule follow up with Cardiology per their instructions. Appointment with SHARA Monday06-02-20 @ 9:45 AM in the [place] office. Take medications as prescribed. Call with any concerns.) Prescriptions: labetaloL [Labetalol 200mg TAB] 200 mg PO BID #60 tablet
[2020-05-26 16:13] VITALS: BP 143/116
== END 2020-05-26 16:17 | disposition home or self-care (01) ==
LOC: ED 18:36 → LD 23:47 → OB 05-26 02:48
PROVIDERS: ADMIT Obstetrics & Gynecology; ATTEND Obstetrics & Gynecology
DX: O14.95 Unspecified pre-eclampsia, complicating the puerperium (principal); Z20.828 Contact with and (suspected) exposure to other viral communicable diseases; O16.5 Unspecified maternal hypertension, complicating the puerperium; Z79.899 Other long term (current) drug therapy
CPT/HCPCS: 36415; 71046; 71275; 80053; 83735; 83880; 84484; 85025; 85379; 85610; 85730; 93005; 93306; 94644; 96361; 96365; 96366; 96375; 99285; G0378; J3475; J7120; Q9967; U0003

== ENCOUNTER 2021-08-11 22:43 | Emergency (ER) | payer BC, OTHER ==
[2021-08-12 03:36] VITALS: BP 149/87
--- NOTE | 2021-08-12 03:37 | Emergency Department Report ---
ED General Adult HPI - General Chief complaint: Chest Pain Stated complaint: CHEST PAIN X3 Time Seen by Provider: 08/12/21 03:35 Source: patient Mode of arrival: Ambulatory Limitations: No Limitations - History of Present Illness Initial comments: Patient is a 25-year-old female presents emergency room complaints of left-sided chest pain that began 3 days ago. She describes the pain as a tightness and a pressure. She denies any radiation of the pain. She denies any fever, cough, nausea, vomiting, diarrhea, shortness of breath, leg swelling. She denies any recent travel, recent surgery, sick contacts, hormone use. She has a past medical history of preeclampsia and reports that she delivered in May, she states that she was able to get off the labetalol 2 months after delivery. She has not followed up with her doctor. Last menstrual cycle 08/05/2021. Allergy to penicillin. She is a never smoker. No family cardiac history. - Related Data Home Medications Medication Instructions Recorded Confirmed Last Taken Ondansetron [Zofran ODT TAB] 8 mg PO DAILY 05/16/20 05/25/20 05/15/20 20:00 Previous Rx's Medication Instructions Recorded Last Taken Type Docusate Sodium [Colace] 100 mg PO BID PRN #60 capsule 05/17/20 Unknown Rx Ferrous Sulfate [Iron 325 MG] 325 mg PO DAILY #30 tablet 05/17/20 Unknown Rx labetaloL [Labetalol 200mg TAB] 200 mg PO BID #60 tablet 05/26/20 Unknown Rx Hydrocortisone 1% [Hydrocortisone 1 applicatio TP TID #1 tube 08/12/21 Unknown Rx 1% CREAM] Allergies Allergy/AdvReac Type Severity Reaction Status Date / Time Penicillins Allergy Unknown Verified 05/11/18 19:40 ED Review of Systems ROS: Stated complaint: CHEST PAIN X3 Other details as noted in HPI Comment: All other systems reviewed and negative ED Past Medical Hx - Past Medical History Previous Medical History?: Yes Hx Hypertension: No Hx Heart Attack/AMI: No Hx Congestive Heart Failure: No Hx Diabetes: No Hx Deep Vein Thrombosis: No Hx Liver Disease: No Hx Renal Disease: No Hx Sickle Cell Disease: No Hx Seizures: No Hx Asthma: No Hx COPD: No Hx HIV: No Additional medical history: Vaginal delivery - Surgical History Past Surgical History?: No - Social History Smoking Status: Never Smoker Substance Use Type: Alcohol - Medications Home Medications: Home Medications Medication Instructions Recorded Confirmed Last Taken Type Ondansetron [Zofran ODT TAB] 8 mg PO DAILY 05/16/20 05/25/20 05/15/20 20:00 History Docusate Sodium [Colace] 100 mg PO BID PRN #60 capsule 05/17/20 05/25/20 Unknown Rx Ferrous Sulfate [Iron 325 MG] 325 mg PO DAILY #30 tablet 05/17/20 05/25/20 Unknown Rx labetaloL [Labetalol 200mg TAB] 200 mg PO BID #60 tablet 05/26/20 Unknown Rx Hydrocortisone 1% [Hydrocortisone 1 applicatio TP TID #1 tube 08/12/21 Unknown Rx 1% CREAM] ED Physical Exam - General Limitations: No Limitations General appearance: alert, in no apparent distress - Head Head exam: Present: atraumatic, normocephalic - Eye Eye exam: Present: normal appearance - ENT ENT exam: Present: mucous membranes moist - Respiratory Respiratory exam: Present: normal lung sounds bilaterally. Absent: respiratory distress, wheezes, rales, rhonchi, stridor, chest wall tenderness, accessory muscle use, decreased breath sounds, prolonged expiratory - Cardiovascular Cardiovascular Exam: Present: regular rate, normal rhythm, normal heart sounds. Absent: systolic murmur, diastolic murmur, rubs, gallop - Neurological Exam Neurological exam: Present: alert, oriented X3 - Psychiatric Psychiatric exam: Present: normal affect, normal mood - Skin Skin exam: Present: warm, dry, intact ED Course Vital Signs 08/12/21 08/12/21 01:14 06:09 Temperature 97.8 F Pulse Rate 87 82 Respiratory 20 Rate Blood Pressure 149/87 O2 Sat by Pulse 99 99 Oximetry ED Medical Decision Making - EKG Data EKG shows normal: sinus rhythm, axis, intervals, QRS complexes, ST-T waves Rate: normal - Radiology Data Radiology results: report reviewed Ordering Physician: LACEY ORTEGA Date of Service: 08/12/21 Procedure(s): XR chest routine 2V Accession Number(s): [id number] cc: LACEY ORTEGA Fluoro Time In Minutes: CHEST 2 VIEWS INDICATION / CLINICAL INFORMATION: CP. COMPARISON: Chest x-ray 05/24/2020 FINDINGS: SUPPORT DEVICES: None. HEART / MEDIASTINUM: No significant abnormality. LUNGS / PLEURA: No significant pulmonary or pleural abnormality. No pneumothorax. ADDITIONAL FINDINGS: No significant additional findings. IMPRESSION: 1. No active cardiopulmonary disease. Signer Name: Natividad Cabrera II, MD Signed: 08/12/2021 4:17 AM Workstation Name: [id number] Transcribed By: ARIADNA Dictated By: NATIVIDAD CABRERA II, MD Electronically Authenticated By: NATIVIDAD CABRERA II, MD Signed Date/Time: 08/12/21416 DD/ 5 TD/TT: - Medical Decision Making Patient is a 25-year-old female presents emergency room complaints of left-sided chest pain that began 3 days ago. She describes the pain as a tightness and a pressure. She denies any radiation of the pain. She denies any fever, cough, nausea, vomiting, diarrhea, shortness of breath, leg swelling. She denies any recent travel, recent surgery, sick contacts, hormone use. She has a past medical history of preeclampsia and reports that she delivered in May, she states that she was able to get off the labetalol 2 months after delivery. She has not followed up with her doctor. Last menstrual cycle 08/05/2021. Allergy to penicillin. She is a never smoker. No family cardiac history. Vitals with mildly elevated blood pressure are otherwise stable. She has no tachycardia, no hypoxia, no fever. EKG is within normal limits. Chest x-ray with no acute process. PERC criteria negative for PE, PE unlikely. Patient also complaining of rash and itching to her bilateral upper extremities, there is some mild erythema in the flexor surfaces, could be due to dermatitis or eczema, no signs of emergent skin condition. Patient will be given prescription for hydrocortisone. Discussed all findings with patient. Advised patient Please use medication as prescribed. Follow-up with your primary care doctor. Follow- up with a recycling technician. Please keep a blood pressure log and take your blood pressure once in the morning and once at night and take this to the primary care doctor to see how your blood pressure fluctuates. Increase your water intake. Eat a low-sodium diet. Incorporate 30-60 minutes of daily exercise. Return to emergency room for any new or worsening symptoms. Critical care attestation.: If time is entered above; I have spent that time in minutes in the direct care of this critically ill patient, excluding procedure time. ED Disposition Clinical Impression: Dermatitis Chest pain Qualifiers: Chest pain type: unspecified Qualified Code(s): R07.9 - Chest pain, unspecified Disposition: HOME / SELF CARE / HOMELESS Is pt being admited?: No Does the pt Need Aspirin: No Condition: Stable Instructions: Nonspecific Chest Pain, Adult Additional Instructions: Please use medication as prescribed. Follow-up with your primary care doctor. Follow-up with a recycling technician. Please keep a blood pressure log and take your blood pressure once in the morning and once at night and take this to the primary care doctor to see how your blood pressure fluctuates. Increase your water intake. Eat a low-sodium diet. Incorporate 30-60 minutes of daily exercise. Return to emergency room for any new or worsening symptoms. Prescriptions: Hydrocortisone 1% [Hydrocortisone 1% CREAM] 1 applicatio TP TID #1 tube Referrals: PRIMARY MD KERMIT [Primary Care Provider] - 3-5 Days TK DALEY MD [Staff Physician] - 3-5 Days Forms: Work/School Release Form(ED) Time of Disposition: 04:29 Print Language: SOMALI
--- NOTE | 2021-08-12 04:21 | XRay Report ---
CHEST 2 VIEWS INDICATION / CLINICAL INFORMATION: CP. COMPARISON: Chest x-ray 05/24/2020 FINDINGS: SUPPORT DEVICES: None. HEART / MEDIASTINUM: No significant abnormality. LUNGS / PLEURA: No significant pulmonary or pleural abnormality. No pneumothorax. ADDITIONAL FINDINGS: No significant additional findings. IMPRESSION: 1. No active cardiopulmonary disease. Signer Name: Karri Cabrera II, MD Signed: 08/12/2021 4:17 AM Workstation Name: [id number]
--- NOTE | 2021-08-12 10:56 | Electrocardiograph Report ---
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
== END 2021-08-12 06:09 | disposition home or self-care (01) ==
LOC: ED 22:43
DX: R07.89 Other chest pain (principal); L30.9 Dermatitis, unspecified; Z72.89 Other problems related to lifestyle; Z88.0 Allergy status to penicillin; Z79.899 Other long term (current) drug therapy
CPT/HCPCS: 71046; 93005; 93010; 99283